=== PATIENT | male | born 1965 | race Caucasian/White ===

== ENCOUNTER 2018-06-19 22:11 | Inpatient (IN) ==
[2018-06-19] MEDS ORDERED: ATIVAN ONE (22:36)
[2018-06-19] MEDS ORDERED: ASPIRIN PR ONE (22:51)
[2018-06-19 23:15] LABS: BASO# 0.02 X1000 (0.0-0.2); BASO% 0.3 % (0.0-0.8); EOS# 0.13 X1000 (0.0-0.7); EOS% 1.6 % (0.0-10.0); HEMOGLOBIN 13.6 g/dL (14.0-18.0); IMM GRAN# 0.02 X1000 (0.0-0.04); IMM GRAN% 0.3 % (0.0-0.5); LYMPH# 2.23 X1000 (1.2-3.4); MCH 25.6 PG (27-31); MCHC 31.6 g/dL (33-37); MCV 80.8 FL (81-99); MONO# 0.62 X1000 (0.11-0.59); MONO% 7.8 % (1.7-9.3); MPV 12.7 FL (7.4-10.4); NEUT# 4.94 X1000 (1.4-6.5); PLT 271 X1000 (130-400); RBC 5.32 XMIL (4.7-6.1); RDW 14.7 % (11.5-14.5); WBC 7.96 X1000 (4.8-10.8)
[2018-06-19 23:23] LABS: INR 0.89; PROTIME 12.8 Seconds (11.0-16.0)
[2018-06-19 23:24] LABS: PTT 28.1 Seconds (22.3-41.8)
[2018-06-19 23:54] LABS: AGAP 15; ALB/GLOB RATIO 1.4; ALBUMIN 4.2 g/dL (3.5-5.0); ALKALINE PHOSPHATASE 99 U/L (32-122); BUN 10 mg/dL (8-22); CALCIUM 9.9 mg/dL (8.8-10.2); CHLORIDE 91 mmol/L (98-107); CK PROFILE 161 U/L (24-204); COSMO 288; CREATININE 1.1 mg/dL (0.7-1.2); ESTIMATED GFR > 60; GOT 89 U/L (10-34); GPT 119 U/L (10-44); POTASSIUM 4.3 mmol/L (3.5-5.1); SODIUM 132 mmol/L (136-145); TCO2 26 mmol/L (25-35); TOTAL BILIRUBIN 0.25 mg/dL (0.20-1.00); TOTAL PROTEIN 7.3 g/dL (6.3-8.3)
[2018-06-19 23:57] LABS: GLUCOSE 534 mg/dL (70-104)
[2018-06-19] MEDS ORDERED: ASPIRIN PO ONE (23:57)
[2018-06-19] MEDS ORDERED: MORPHINE IV ONE (23:58)
[2018-06-19] MEDS ORDERED: NITROGLYCERIN TOP ONE (23:58)
[2018-06-19] MEDS ORDERED: KEPPRA PO ONE (23:59)
[2018-06-20 00:22] LABS: ALLEN TEST YES; BE 3.6 mmoll (-3.0-3.0); BLOOD TYPE ARTERIAL; HCO3-(ACT) 27.6 mmoll (20.0-26.0); O2(CT) 18.7 mL/dL (15.0-23.0); O2HB 93.1 % (95.0-99.0); PO2(98.6) 69 mmHg (60-100); SAMPLE BLOOD; SAO2 95.6 % (95.0-100.0); THB 14.3 g/dL (11.5-17.4); pH(98.6) 7.37 (7.35-7.45)
[2018-06-20 00:23] LABS: MODALITY ROOM AIR
[2018-06-20 00:26] LABS: PCO2(98.6) 52 mmHg (35-45)
[2018-06-20] MEDS ORDERED: HUMULIN R IV ONE (01:12)
[2018-06-20] MEDS ORDERED: NS 1,000 ML IV SCH (01:15)
[2018-06-20 01:40] LABS: UR AMPHETAMINES QUAL NONE DETECTED (NONE DETECT); UR BARBITUATES QUAL NONE DETECTED (NONE DETECT); UR BENZODIAZEPIN QUAL NONE DETECTED (NONE DETECT); UR CANNABINOIDS QUAL NONE DETECTED (NONE DETECT); UR COCAINE QUAL NONE DETECTED (NONE DETECT); UR METHADONE QUAL NONE DETECTED (NONE DETECT); UR OPIATES QUAL NONE DETECTED (NONE DETECT); UR OXYCODONE QUAL NONE DETECTED (NONE DETECT); UR PCP QUAL NONE DETECTED (NONE DETECT)
--- NOTE | 2018-06-20 01:58 | PROVIDER DOCUMENTATION ---
This chart was entered by Radha Lindo Scribe, acting as scribe for Nuris Rowe MD. HPI-General Adult - General Chief Complaint: Chest Pain Stated Complaint: cp Time Seen by Provider: 06/19/18 23:45 Source: patient - History of Present Illness -Gen Adult Nature of Presenting Problems: Pt is 52/m presenting to ED via EMS w/ CP that he sts lasts hrs at a time and sts having SOB, nausea and some associated diaphoresis that has has been present intermittently for the past 10 days. Pt had seizure upon arrival to ED, pt has hx of seizures and currently takes kepra to control them. Pt has hx of DMII, COPD, CHF, HTN, sleep apnea, Lipids, Seizures. Location of Pain/Injury: reports: chest (L chest) Pain Radiation: reports: no radiation Quality of Pain: reports: sharp Severity: reports: moderate Onset/Duration: reports: just prior to arrival Timing: reports: still present Context/Activities at Onset: reports: none Modifying Factors: improves with: nothing Associated Symptoms: reports: diaphoresis, nausea. denies: arm pain, shortness of breath, vomiting Similar Symptoms Previously?: Yes Recently seen or treated by another doctor?: No Review of Systems - Adult - REVIEW OF SYSTEMS - ADULT Constitutional: reports: no symptoms reported. denies: chills, fever Eyes: reports: no symptoms reported Ears, Nose, Mouth & Throat: reports: no symptoms reported Cardiovascular: reports: chest pain (Lsided sharp chest pain) Respiratory: reports: no symptoms reported. denies: cough Gastrointestinal: reports: nausea. denies: abdominal pain, vomiting Genitourinary: reports: no symptoms reported Musculoskeletal: reports: no symptoms reported Integumentary: reports: no symptoms reported Neurological: reports: seizure. denies: dizziness/vertigo, headache/migraines Endocrine: reports: other (dm) Hematologic/Lymphatic: reports: no symptoms reported Past History - Adult - PAST MEDICAL HISTORY-ADULT Review of Records: reports: Old Records Reviewed, Nursing Assessment Review, Medications Reviewed, Social history reviewed & non-contributory. Cardiovascular: reports: CHF, HTN, hyperlipidemia Respiratory: reports: denies history Gastrointestinal: reports: denies history Obstetrical/Gynecological: reports: denies history Genitourinary: reports: denies history Musculoskeletal: reports: denies history Psychiatric: reports: denies history Endocrine/Immune: reports: Diabetes Diabetes Type: Type 2 - PRIOR SURGERIES/PROCEDURES Surgical/Procedure History: reports: none Physical Exam-General - CONSTITUTIONAL General Appearance: alert, mild distress - EYES Eyes: PERRL/EOMI - HEAD, EARS, NOSE, MOUTH & THROAT HENMT: normocephalic/atraumatic, moist mucous membranes - NECK Neck: non-tender, full range of motion, supple, normal inspection - RESPIRATORY Respiratory: lungs clear, normal breath sounds - CARDIOVASCULAR Cardiovascular: normal peripheral pulses, regular rate, rhythm, no edema, no murmur - GASTROINTESTINAL (ABDOMEN) Abdominal Exam: normal bowel sounds, non tender, soft - SKIN Integumentary: normal color, warm/dry - NEUROLOGIC Neurologic: grossly normal - PSYCHIATRIC Psych/Mental Status: oriented x 3, anxious Progress - PLAN OF CARE/RESULTS Progress/Plan/Lab Results: Vital Signs - 8 hr 06/19/18 22:28 Temperature 99 F Pulse Rate 105 H Respiratory Rate 16 Blood Pressure 149/92 O2 Sat by Pulse Oximetry 93 L Laboratory Results - last 24 hr 06/19/18 06/19/18 06/19/18 22:50 22:50 22:50 WBC 7.96 RBC 5.32 Hgb 13.6 L Hct 43.0 MCV 80.8 L MCH 25.6 L MCHC 31.6 L RDW Std Deviation 14.7 H Plt Count 271 MPV 12.7 H Immature Gran % (Auto) 0.3 Neut % (Auto) 62.0 Lymph % (Auto) 28.0 Williams % (Auto) 7.8 Eos % (Auto) 1.6 Baso % (Auto) 0.3 Immature Gran # (Auto) 0.02 Neut # (Auto) 4.94 Lymph # (Auto) 2.23 Williams # (Auto) 0.62 H Eos # (Auto) 0.13 Baso # (Auto) 0.02 PT INR PTT (Actin FS) Specimen Type Sample Site pH pCO2 pO2 HCO3 Base Excess Oxyhemoglobin ABG O2 Sat (Calculated) ABG O2 Saturation ABG Carboxyhemoglobin ABG Methemoglobin Migue Test A-a O2 Difference Total Hemoglobin Lactate Liter Flow Blood Gas Modality FiO2 % Sodium 132 L Potassium 4.3 Chloride 91 L Carbon Dioxide 26 Anion Gap 15 BUN 10 Creatinine 1.1 Estimated GFR/1.73 m2 > 60 BUN/Creatinine Ratio 9 Glucose 534 H* Calculated Osmolality 288 Calcium 9.9 Total Bilirubin 0.25 AST 89 H ALT 119 H Alkaline Phosphatase 99 Creatine Kinase 161 Troponin T Umx-L-Knalrbvzpmj Pept 17 Total Protein 7.3 Albumin 4.2 Globulin 3.1 Albumin/Globulin Ratio 1.4 06/19/18 06/19/18 06/19/18 22:50 22:50 23:59 WBC RBC Hgb Hct MCV MCH MCHC RDW Std Deviation Plt Count MPV Immature Gran % (Auto) Neut % (Auto) Lymph % (Auto) Williams % (Auto) Eos % (Auto) Baso % (Auto) Immature Gran # (Auto) Neut # (Auto) Lymph # (Auto) Williams # (Auto) Eos # (Auto) Baso # (Auto) PT 12.8 INR 0.89 PTT (Actin FS) 28.1 Specimen Type ARTERIAL Sample Site R RADIAL pH 7.37 pCO2 52 H* pO2 69 HCO3 27.6 H Base Excess 3.6 H Oxyhemoglobin 93.1 L ABG O2 Sat (Calculated) 18.7 ABG O2 Saturation 95.6 ABG Carboxyhemoglobin 1.60 ABG Methemoglobin 1.0 Migue Test YES A-a O2 Difference 16.0 Total Hemoglobin 14.3 Lactate 1.40 Liter Flow 0.0 Blood Gas Modality ROOM AIR FiO2 % 21.0 Sodium Potassium Chloride Carbon Dioxide Anion Gap BUN Creatinine Estimated GFR/1.73 m2 BUN/Creatinine Ratio Glucose Calculated Osmolality Calcium Total Bilirubin AST ALT Alkaline Phosphatase Creatine Kinase Troponin T < 0.010 [id number]-[id number] Pept Total Protein Albumin Globulin Albumin/Globulin Ratio Orders Category Date Time Status Cardiac Monitoring DIRECTED Care 06/19/18 22:51 Active Oxygen Therapy- ED Nursing DIRECTED Care 06/19/18 22:51 Active Saline Loc NOW Care 06/19/18 22:51 Active CHEST-PORTABLE [RAD] Stat Exams 06/19/18 22:53 Taken ABG [RESP] Routine Lab 06/19/18 23:59 Completed ACETONE SERUM [CHEM] Stat Lab 06/19/18 23:59 Uncollected BLOOD CULTURE [BLDCUL] Stat Lab 06/19/18 22:50 Ordered CBC WITH ELECTRONIC DIFF [HEME] Stat Lab 06/19/18 22:50 Completed CK PROFILE [SP CHEM] Stat Lab 06/19/18 22:50 Completed COMPREHENSIVE METABOLIC PANEL [CHEM] Stat Lab 06/19/18 22:50 Completed PRO B-NATRIURETIC PEPTIDE Stat Lab 06/19/18 22:50 Completed PROTIME WITH INR [COAG] Stat Lab 06/19/18 22:50 Completed PTT [COAG] Stat Lab 06/19/18 22:50 Completed TROPONIN T Stat Lab 06/19/18 22:50 Completed URINE DRUG SCREEN Stat Lab 06/19/18 23:57 Uncollected Aspirin Med 06/19/18 22:51 Discontinued 300 mg NH NOW ONE Aspirin Med 06/19/18 23:57 Discontinued 325 mg PO NOW ONE Levetiracetam [Keppra] Med 06/19/18 23:59 Once 1,500 mg PO NOW ONE Lorazepam [Ativan] Med 06/19/18 22:36 Discontinued 2 mg .ROUTE .STK-MED ONE Morphine Med 06/19/18 23:58 Discontinued 4 mg IV NOW ONE Nitroglycerin Med 06/19/18 23:58 Discontinued 0.5 inch TOP NOW ONE CP/SOB/Palp >45 yrs of Age Stat Oth 06/19/18 22:51 Ordered EKG [EKG] Stat Ther 06/19/18 22:21 Ordered EKG [EKG] Stat Ther 06/19/18 22:51 Ordered Heart score 5 need inpatient for further management Result Diagrams: 06/19/18 22:50 06/19/18 22:50 - REASSESSMENT Reassessment #1 Time Reassessed: 01:10 Status: unchanged (medication not given yet, nurse informed to give medication now.) Reassessment #2 Time Reassessed: 01:56 Status: unchanged (Nurse is putting IV now to start medication, informed to give aspirin now.) - CONSULTS/PCP/HOSPITALIST Notification #1 *Consult/PCP/Hospitalist*: Dr. Farias Time Discussed: 01:49 Consult Disposition: Admit (Hx, PE and patient care discussed with Dr. Farias, accepted. Dr. Farias request head CT due to seizure.) Departure - Departure Date of Disposition Decision: 06/20/18 Time of Disposition Decision: 01:49 DIAGNOSIS: Seizure, Hyperglycemia Chest pain Qualifiers: Chest pain type: unspecified Qualified Code(s): R07.9 - Chest pain, unspecified Disposition: ADMITTED INPATIENT 09 Certified Medical Emergency: Emergent Condition: Serious Referrals and Follow-Ups: RUFINO KRAMER [Primary Care Provider] - - Critical Care Note This patient required my direct & personal management of CC.: No Attestation - Physician/ DYLAN Attestation Patient care was provided by Advanced Practice Provider:: No The physician spent face to face time with patient:: Yes Advanced Practice Provider documentation review:: Supervising physician onsite and consulted in the evaluation and care of this patient. The physician did have a face to face encounter with the patient. This chart was documented by the indicated scribe, (Radha Lindo, Seb) and accurately reflects the services I performed and decisions made by me, Nuris Santoyo MD, as attested by the provider's signature.
--- NOTE | 2018-06-20 06:10 | Diag Imaging Result Doc PS360 ---
EXAM: CHEST-PORTABLE HISTORY: CP TECHNIQUE: Chest single view COMPARISON: None. FINDINGS: The lungs are well expanded. The heart is not enlarged. The vessels are not distended. There are no infiltrates. No effusion identified. IMPRESSION: Negative exam. Electronically signed by Kiko Hewitt 06/20/2018 6:08 AM
[2018-06-20 06:56] LABS: HEMOGLOBIN A1C 13.3 % (4.8-6.0)
[2018-06-20] MEDS ORDERED: HUMULIN R SUBQ SCH (07:00)
--- NOTE | 2018-06-20 07:11 | EKG Report ---
Test Performed on : 06/19/2018 10:19:02 PM Test Reason : CP Blood Pressure : / mmHG Vent. Rate : 107 BPM Atrial Rate : 107 BPM P-R Int : 188 ms QRS Dur : 090 ms QT Int : 332 ms P-R-T Axes : 070 -03 044 degrees QTc Int : 443 ms Sinus tachycardia. Possible Left atrial enlargement Borderline ECG No previous ECGs available Unconfirmed Result
--- NOTE | 2018-06-20 07:36 | HISTORY AND PHYSICAL ---
PRIMARY CARE PROVIDER: Dr. Escobedo in [facility] [employer] ASSEMBLER: Dr. Sameer Palma. DATE AND TIME: 06/20/2018 at 0300. CHIEF COMPLAINT: Chest pain. HISTORY OF PRESENT ILLNESS: Mr. Wynn is a 52-year-old, male with a past medical history of angioplasty without stent placement a few years ago. The patient reports since that time he has been taking a daily aspirin. Approximately 4 weeks ago, he was instructed by his surgeon who performed his hernia repair to stop taking his aspirin due to some reported bleeding complications. The patient states that over the past 3 months that he has had approximately 5 episodes of chest pain. He reports this chest pain does come on with exertion though once he stops and sits down and rests the chest pain does not always subside. He states that it usually does subside with the administration of nitroglycerin. The patient states that yesterday he was walking when he began to have chest pain that was in the center of his chest and was nonradiating. He stated it felt like somebody was stabbing him in the chest. He did have associated symptoms of nausea. The patient also reported that just prior to his arrival to the ER he did have a seizure at home. He also had a witnessed seizure by EMS in the ER staff after his arrival to the ER as well. The patient denied any recent changes to any of his medications or being out of his medicines or missing any doses of his medicines recently. The only change that he mentioned was the aspirin as above. He denies any dizziness, shortness of breath, near- syncope, syncope, abdominal pain or vomiting. The patient does have a history of seizures. He stated that his last seizure prior to the one that he had today have been a few months ago. He does take Keppra daily though and does not know the dose at this time though he thinks it is 500 mg twice a day. The patient also reports that he does use alcohol daily. He states he drinks fifth of liquor over a couple of days, so approximately just less than a pint of liquor a day. He has had reported withdrawal symptoms in the past when going for periods without drinking. Upon evaluation in the ER, the patient was noted to be hypoglycemic with a serum glucose of 534. He was slightly hypercapnic as well with CO2 of 52. He does have a history of having COPD and sleep apnea though this is the patient's first visit at our hospital, and we do not have a baseline CO2 level to compare this to. Head CT showed no acute intracranial abnormality. Chest x- ray showed no acute disease. The initial troponin and CK were negative. EKG showed a sinus tachycardia with possible left atrial enlargement at a rate of 107 with a QTc of 443. The patient states that his chest pain has improved since receiving morphine and nitroglycerin though he still is having chest pain at this time. During my examination, the patient was very drowsy. He did repeatedly keep falling asleep and would have to be awoken with verbal and light tactile stimulation. Once awoken, he is alert and oriented to person, place, time, and situation. Though, unfortunately, he is a very poor historian. At this time, he will be admitted for further treatment and evaluation of his chest pain. REVIEW OF SYSTEMS: A 14 point review of systems was conducted with the patient. All were negative except for pertinent positives mentioned above in HPI. PAST MEDICAL HISTORY: 1. Coronary artery disease, status post angioplasty. 2. Hypertension. 3. Hyperlipidemia. 4. Congestive heart failure. 5. COPD. 6. Diabetes mellitus type 2. 7. Seizure disorder. 8. Essential tremor. 9. Restless legs syndrome. 10. Glaucoma. 11. Major depressive disorder. 12. Alcohol abuse. 13. Gastroesophageal reflux disease. PAST SURGICAL HISTORY: 1. Angioplasty. 2. Hernia repair. 3. Tonsillectomy. 4. Adenoidectomy. 5. The patient does have surgery of his left lower leg. SOCIAL HISTORY: The patient is a former smoker. He quit smoking five years ago though prior to this he had smoked since he was age 11 at 2 packs per day. The patient reports that he does drink daily approximately 500 mL of liquor a day. He does report that he has had withdrawal symptoms in the past when going for periods of time without drinking. He denies any illicit drug use. He is disabled. The patient does have a history of major depressive disorder, though has never received inpatient psychiatric treatment. He denies any previous history of self-harm or attempted suicide. He denies any suicidal or homicidal thoughts at the present time. FAMILY HISTORY: The patient reports that he is adopted and does not know any of his family medical history. ALLERGIES: He reports allergies to morphine, penicillin, ibuprofen and Librium though after speaking with the patient his morphine allergy is more of a personal preference. The patient states that previously he felt as though he was becoming addicted to morphine when he was receiving it in the past, and did ask not to be given this medicine anymore. HOME MEDICATIONS: We are still awaiting some of his home medications to be verified though we do have some that have been verified and they are as followed. 1. Aripiprazole 10 mg p.o. daily. 2. Atorvastatin 10 mg p.o. daily. 3. Rexulti 10 mg p.o. at bedtime. 4. Bumetanide 1 mg p.o. p.r.n. as directed. 5. Buspirone HCL 30 mg p.o. b.i.d. 6. Clonidine 0.1 mg p.o. p.r.n. as directed. 7. Flexeril 10 mg p.o. at bedtime. 8. Cymbalta 90 mg p.o. daily. 9. Tricor 145 mg p.o. at bedtime. 10. NovoLog subcu as directed though this medication has not been confirmed with the patient. 11. Tresiba, previously this looked to be 80 units subcu though this dose has not been verified with the patient. 12. Cozaar 50 mg p.o. daily. 13. Metoprolol 50 mg p.o. b.i.d. 14. Singulair 10 mg p.o. daily. 15. Omeprazole 20 mg p.o. daily. 16. Primidone 150 mg p.o. b.i.d. 17. Requip 1 mg p.o. 4 times a day. 18. Janumet 50 -1000 mg tablet 1 tablet p.o. b.i.d. 19. Desyrel 150 mg p.o. at bedtime p.r.n. as directed. DIAGNOSTIC DATA/LABORATORY RESULTS: White blood cell count is 7960. Hemoglobin 13.6, hematocrit 43, and platelet count is 271,000. PT 12.8, INR 0.89, PTT is 28.1. Sodium 132, potassium 4.3, chloride 91, serum bicarb 26, BUN 10, creatinine 1.1, glucose 534, calcium 9.9, magnesium 1.9. Total bilirubin is 0.25, AST 89, ALT 119, CK 161. Troponin less than 0.01. ProBNP is 17. Serum acetone level is negative. Serum alcohol level is 0. Urine drug screen was negative. Arterial blood gases were obtained on room air, pH is 7.37, pCO2 was 52, PO2 69, HC03 is 27.6, with a base excess of 3.6. Oxyhemoglobin 93.1 and O2 saturation of 95.6. EKG showed sinus tachycardia with possible left atrial enlargement at a rate of 107 with a QTc of 443. Portable chest x-ray showed to be a negative exam as per Radiology. CT of the head without contrast showed no acute intracranial abnormality. Age-appropriate exam is as per Radiology. PHYSICAL EXAMINATION: VITAL SIGNS: Temperature 99 degrees, heart rate 66, respirations 17, blood pressure is 158/88, oxygen saturation is 96% on nasal cannula at 2 L. During my examination, the patient's oxygen saturation was dipping into the 89% on room air. This may be secondary to medications that he was given which included morphine in the ER. The patient was not in any respiratory distress. GENERAL: Mr. Wynn is a 52-year-old, male who was resting on the ER stretcher. He was drowsy upon my examination, and did have to be repeatedly awoken with verbal and light tactile stimulation. Once awoken, he was able to answer questions appropriately though I did have to repeat the questions more than once at times. He is alert and oriented to person, place, time, and situation though unfortunately is somewhat of a poor historian. HEENT: Head is atraumatic, normocephalic. Pupils are equal, round, and reactive to light and were 3 mm bilaterally and brisk. Oral mucosa was moist. Oropharynx was clear. NECK: Supple. Trachea midline. No JVD noted. CARDIOVASCULAR: The patient has S1-S2 present though heart sounds were difficult to auscultate though this could be secondary to body habitus. There are no overt murmurs, gallops or rubs appreciated. He does have a regular rate and rhythm. PULMONARY: The patient has symmetrical chest expansion bilaterally. Lung sounds are clear to auscultation in bilateral full alvarado. ABDOMEN: Soft. He does not appear to be distended. The patient does have a protuberant abdomen noted. He was nontender upon palpation. Bowel sounds were present and all 4 quadrants were slightly hypoactive. EXTREMITIES: No cyanosis, clubbing or edema noted. Pulse, motor, and sensory is intact in all extremities. Radial pulses and pedal pulses were 2+ bilaterally. INTEGUMENTARY: The patient's skin is pink, warm, and dry. NEUROLOGICAL: The patient is alert and oriented to person, place, time, and situation. He is able to move all extremities though as previously mentioned, the patient was drowsy during my examination. I did have to repeatedly wake him up to answer questions, and did have to repeat the questions more than once. He was easily arousable with verbal and light tactile stimulation. Other than this, there does not appear to be any other focal neurological deficits noted. ASSESSMENT AND PLAN: 1. Chest pain. For further evaluation of this, we have placed a series of cardiac enzymes. We will do repeat EKG in the morning as well as an echocardiogram. We have placed a consult with Cardiology, and we will await their evaluation and further recommendations for management. We will continue with daily aspirin therapy and we have continued the patient's antihypertensive and hyperlipidemic medications. He will be placed on CIC with telemetry for close monitoring. We will continue to follow. 2. History of coronary artery disease, status post angioplasty. We will continue treatment as mentioned above for #1. 3. Hypertension. We will continue his regularly prescribed medicines. 4. Hyperlipidemia. We will continue his regularly prescribed medicines. 5. Diabetes mellitus type 2. The patient was hyperglycemic upon arrival though this has improved since being given insulin. We will continue with a sliding scale Regular insulin per moderate dose protocol. We will do pattern fingerstick blood sugars. We have ordered a hemoglobin A1c and are awaiting this result at this time. We will try to get the patient's other diabetic medications verified so these can be readdressed. 6. Seizure disorder. We have placed the patient on seizure precautions as well as aspiration precautions. He does take Keppra though we are still trying to verify his dose. He did receive a dose of 1500 mg in the ER. We will continue with [address] His CT of the head was negative. As previously mentioned, we will continue to follow. 7. Alcohol abuse. The patient reports that he does drink approximately a pint of liquor a day. We will closely monitor him for any signs and symptoms of alcohol withdrawal. He does have an allergy to Librium so we are going to place him with baclofen 20 mg 3 times a day. We will continue to closely monitor him. 8. Major depressive disorder. We continued the patient's regularly prescribed medicines. 9. COPD. We are awaiting some of his respiratory medications to be verified though until this is completed, we will place him with p.r.n. DuoNeb treatments q 4 to 6 hours as needed. 10. Deep vein thrombosis prophylaxis provided with SCD's. The patient will placed on CIC with telemetry. He will have vital signs q.4 hours. We will do strict intake and output. He will be NPO until evaluated by cardiology. Further orders and recommendations pending hospital course, diagnostic studies, and physician evaluation. Dictated by JENNYFER Yanes for Pete Suero MD Addendum: Patient seen and examined by myself. Agree with JENNYFER note. It reflects my assessment and plan. Patient is being admitted for chest pain. Patient has known coronary artery disease. Will trend troponins, order an echocardiogram and consult cardiology. Will monitor patient closely. cc: Pete Suero MD MTDD
[2018-06-20] MEDS: HUMULIN R SUBQ SCH ×4 (07:38→20:51)
[2018-06-20] MEDS: LIORESAL PO SCH ×3 (07:41→23:24)
[2018-06-20] MEDS: PRILOSEC PO SCH (07:41)
--- NOTE | 2018-06-20 07:58 | Diag Imaging Result Doc PS360 ---
EXAM: CT HEAD W/O CONTRAST 06/20/2018 HISTORY: seizure TECHNIQUE: This exam was performed using automated exposure control, adjustment of mA or kV according to patient size, and/or use of iterative reconstruction technique. COMMENT: There is no evidence of mass effect, bleed, or abnormal extra-axial fluid collection. The paranasal sinuses are clear. The calvarium is intact. IMPRESSION: No evidence of acute intracranial disease. Electronically signed by Randy Higginbotham 06/20/2018 7:55 AM
--- NOTE | 2018-06-20 08:16 | EKG Report ---
Test Performed on : 06/20/2018 07:33:42 AM Test Reason : chest pain Blood Pressure : / mmHG Vent. Rate : 064 BPM Atrial Rate : 064 BPM P-R Int : 192 ms QRS Dur : 092 ms QT Int : 414 ms P-R-T Axes : 062 -07 052 degrees QTc Int : 427 ms Normal sinus rhythm. Normal ECG When compared with ECG of 19-JUN-2018 22:19, (Unconfirmed) Vent. rate has decreased BY 43 BPM Unconfirmed Result
[2018-06-20] MEDS: REQUIP PO SCH ×4 (08:59→20:49)
[2018-06-20] MEDS: LIPITOR PO SCH (08:59)
[2018-06-20] MEDS: ABILIFY PO SCH (08:59)
[2018-06-20] MEDS: ZETIA PO SCH (09:00)
[2018-06-20] MEDS: ASPIRIN EC PO SCH (09:00)
[2018-06-20] MEDS: MYSOLINE PO SCH ×2 (09:00→21:33)
[2018-06-20] MEDS: LOPRESSOR PO SCH ×2 (09:01→20:50)
[2018-06-20] MEDS: CYMBALTA PO SCH (09:01)
[2018-06-20] MEDS: SINGULAIR PO SCH (09:01)
[2018-06-20] MEDS: BUSPAR PO SCH ×2 (09:02→20:50)
[2018-06-20] MEDS: COZAAR PO SCH (09:03)
[2018-06-20 09:24] LABS: CK INDEX 1.8 (0.0-2.5); CK-MB 4.48 ng/mL (0.0-5.0)
[2018-06-20] MEDS: DUONEB (A & A) INH PRN ×2 (09:27→21:55)
[2018-06-20] MEDS ORDERED: LEXISCAN ONE (15:15)
[2018-06-20 15:19] LABS: CK INDEX 2.2 (0.0-2.5); CK-MB 4.88 ng/mL (0.0-5.0)
[2018-06-20] MEDS ORDERED: BASAGLAR SUBQ ONE (17:16)
[2018-06-20] MEDS: HUMALOG SUBQ SCH (18:00)
--- NOTE | 2018-06-20 18:02 | PROGRESS NOTE ---
DATE: 06/20/2018 SUBJECTIVE: Today Mr. Wynn was seen in the ICU. He refers to be doing fairly okay. He has not had any more seizures and he said his chest pain has improved. OBJECTIVE: Vital Signs: Blood pressure is 106/79, pulse is 66, respiration is 15, temperature is 98.1. General: Mr. Wynn is a 52-year-old male. He is in bed, is not in any cardiopulmonary distress. HEENT: Mucosa is pink and moist. Anicteric. Acyanotic. Neck: Supple. Chest: He is slightly lethargic, but easily arousable. Cardiovascular: Regular rate and rhythm. No murmurs, no rubs, no gallops. Respiratory: There is good air entry bilateral. There are no crepitations, no rhonchi. Abdomen: Soft, nontender. Bowel sounds present. Extremities: No pedal edema. Distal pulses present. Central Nervous System: Patient is drowsy, but easily arousable and follows commands. LABORATORY DATA: From yesterday has been reviewed. Remarkably, glucose was 534, with A1c of 13.3. A chest x-ray showed no pathology. A CT scan of the head was unremarkable. ASSESSMENT: 1. Atypical chest pain on presentation. The patient has undergone stress test and I understand is negative. We are awaiting for the official report. 2. History of coronary artery disease status post angioplasty. 3. Diabetes type 2, uncontrolled with an A1c of 13.3. According to Mr. Wynn, he takes over about 8 units of Tresiba at night. Unsure if he is consistent with the insulin regimen since his A1c is remarkably high. For now, we are going to continue with some glargine, cover his meals and the rest was sliding scale. 4. Alcohol abuse. The patient has been counseled. We are going to be watching for withdrawal symptoms. 5. History of major depressive disorder. 6. Hypertension, dyslipidemia, stable. 7. Elevated liver enzymes. We will get liver hepatitis serology panel and an ultrasound of the liver in the morning. cc: Aubrey Alvarez MD
--- NOTE | 2018-06-20 18:06 | CARDIOLOGY CONSULTATION ---
DATE: 06/20/2018 CHIEF COMPLAINT: On presentation to ER was chest pain. HISTORY OF PRESENT ILLNESS: Mr. Wynn is a 52-year-old, white male with no previous cardiac history. Per the patient. He does apparently see a plastics plater down in [place] and has had a stress test in the past but he is not aware of a previous heart catheterization being performed. He has not had a stress test in many years per him. The patient is a very difficult historian as he falls asleep on multiple occasions during the course of the evaluation. He reports that at rest yesterday evening, he had the onset of a stabbing type chest pain in a point location in the left chest wall area. This was not exertional in nature. There was no exacerbation of the symptom with any sort of activities. It persisted until it apparently resolved at some point this morning. It lasted for many hours. He had no other associated symptoms. The patient apparently suffered a seizure at some point during this ER evaluation. He has a history of seizures and he is somewhat somnolent possibly secondary to benzodiazepines being administered. PAST MEDICAL HISTORY: Somewhat difficult and limited to fine secondary to the patient not being a very good historian. 1. Again, he denied any sort of previous coronary artery disease or heart catheterizations. He has listed that he has had a previous stent. I do not have any clinical information to support this. We do not have records of the [facility] to support this, nor are there any records available at [facility] to support this. 2. Hyperlipidemia. 3. Hypertension. 4. Diabetes. 5. Seizure disorder. This is obtained via chart review. SOCIAL HISTORY: The patient was apparently recently living at some sort of hotel. He quit smoking around 5 years ago. He drinks liquor on a daily basis. Has previously had withdrawal symptoms. He denies any illicit drug use. FAMILY HISTORY: Apparently was adopted and he does not know any of his pertinent family history. REVIEW OF SYSTEMS: Ten system review of systems is negative except for those things mentioned in HPI. PHYSICAL EXAMINATION: Vital Signs: He is afebrile. His heart rate is 65. His blood pressure is 106/79. On presentation, it was 149/92. General: He is in no acute distress. HEENT: Oropharynx is moist. He has poor dentition. Eye examination is pink conjunctivae. White sclerae. Neck: Examination shows no obvious thyromegaly or thyroid tenderness. Cardiovascular: He sounds to be in a regular rate and rhythm. He has no obvious murmurs. He has no pain with palpation of the chest wall. No obvious external signs of trauma. He has no lower extremity edema. Chest: Exam sounds clear bilaterally. He has no increased work of breathing. Abdomen: Soft, nontender, nondistended. He has no obvious organomegaly. Skin: Warm and dry throughout without any rashes. Neurological: He is moving all extremities well. He has no obvious lateralizing deficits. Psychiatric: He is somewhat somnolent. He does wake to physical and verbal stimuli, but at times he has to be re-woken during the course of the evaluation. PERTINENT DATA: His chest x-ray is unremarkable for any acute findings. He had a head CT that showed no evidence of acute intracranial disease. His EKG at 7:33 this morning shows sinus rhythm, with no acute ischemic changes. His EKG yesterday at 2219 shows mild sinus tachycardia at 107 beats per minute with no acute signs of ischemia, injury pattern or previous infarct. DATA: White count 7.9, hematocrit 43, platelet count is 271. INR 0.89. His sodium is 132, potassium 4.3, BUN 10, creatinine 1.1. His glucose was 534 his A1c is 13. His cardiac enzymes are negative times multiple sets. His alcohol level was negative. His UDS was negative. ASSESSMENT: Mr. Wynn is a 52-year-old male with diabetes, hypertension, previous tobacco use. Presenting with atypical chest pain. PLAN: We will proceed with myocardial perfusion imaging. If this is unremarkable, then he can likely be discharged from a cardiovascular standpoint. Myocardial perfusion imaging will be performed today. cc: John Lui MD
[2018-06-20] MEDS ORDERED: INSULIN PEN NEEDLES ONE (18:53)
--- NOTE | 2018-06-20 19:40 | Diag Imaging Result Document ---
PROCEDURE NAME: MYOCARDIAL PERF SCAN, STR/REST - 06/20/2018 SUMMARY: The patient administered 15.5 mCi of technetium-99m labeled sestamibi, after which resting cardiac images were obtained. The patient was subsequently administered Lexiscan 0.4 mg intravenously, after which the heart rate went from 63 beats per minute to 71 beats per minute. The blood pressure went from 137/73 to 105/69. With Lexiscan, the patient denied chest discomfort. Following the administration of Lexiscan, the patient was administered 45.3 mCi of technetium-99m labeled sestamibi, after which gated stress cardiac images were obtained. Baseline ECG demonstrated sinus rhythm. With Lexiscan, there were no diagnostic ST-segment changes. SPECT images were reconstructed in the short, horizontal long, and vertical long axis. Review of these images demonstrated mildly to moderately diminished activity in the basal and mid inferior wall on stress images which appears similar on resting images. No significant reversibility is evident. Gated images demonstrate a calculated left ventricular ejection fraction of 65% with symmetrical wall motion/thickening. CONCLUSIONS: 1. Adequate response to Lexiscan. 2. Clinically negative for chest pain. 3. Electrocardiographically negative for Lexiscan-induced myocardial ischemia. 4. Lexiscan sestamibi images demonstrate fixed mildly to moderately diminished activity in the basal and mid inferior wall, with corresponding preserved regional wall motion most consistent with diaphragm attenuation artifact. Nontransmural infarction in this territory cannot entirely be excluded. There is no convincing scintigraphic evidence of inducible myocardial ischemia. Normal left ventricular systolic function and wall motion demonstrated. cc: MD Opal Tinajero PA
[2018-06-20] MEDS: KEPPRA PO SCH (20:50)
[2018-06-20] MEDS ORDERED: TRICOR PO SCH (21:00)
[2018-06-20] MEDS ORDERED: FLEXERIL PO SCH (21:00)
[2018-06-20] MEDS: NON-FORMULARY MED (Brexpiprazole [Rexulti] 0 MG) PO SCH (21:32)
--- NOTE | 2018-06-20 22:19 | ECHO REPORT ---
ORDER DATE: 06/20/2018 MEASUREMENTS: Septal thickness 1.0. Left ventricular internal diameter diastole 4.6. Positive wall thickness 1.0. Left ventricular internal diameter in systole 3.2. Aortic root 2.8. Left atrium 3.8 summary. SUMMARY: 1. Technically difficult study due to limited acoustic window quality. Intravenous echo contrast agent was utilized to enhance endocardial definition. 2. Aortic valve is trileaflet and opens normally on 2-dimensional images. Mitral and tricuspid valves are without evidence of structural abnormality, while pulmonic valve is not well demonstrated. There is trace mitral regurgitation and trace tricuspid regurgitation. The aortic root is normal size. 3. Normal left ventricular dimensions demonstrated. Estimated left ejection fraction appears to be at least 65%. No regional wall motion abnormalities evident. Left atrium, right atrium, right ventricle are normal size with grossly preserved right ventricular systolic function. 4. No pericardial effusion. 5. Appearance of inferior vena cava suggests normal central venous pressure. cc: Cam Sosa MD
[2018-06-20 23:26] LABS: CK-MB 4.44 ng/mL (0.0-5.0)
[2018-06-21 06:23] LABS: BASO# 0.02 X1000 (0.0-0.2); BASO% 0.3 % (0.0-0.8); EOS# 0.15 X1000 (0.0-0.7); EOS% 2.3 % (0.0-10.0); HEMATOCRIT 40.9 % (42.0-52.0); HEMOGLOBIN 12.8 g/dL (14.0-18.0); IMM GRAN# 0.02 X1000 (0.0-0.04); IMM GRAN% 0.3 % (0.0-0.5); LYMPH# 1.72 X1000 (1.2-3.4); LYMPH% 26.3 % (20.5-51.1); MCHC 31.3 g/dL (33-37); MCV 83.1 FL (81-99); MONO# 0.53 X1000 (0.11-0.59); MONO% 8.1 % (1.7-9.3); MPV 12.5 FL (7.4-10.4); NEUT# 4.11 X1000 (1.4-6.5); NEUT% 62.7 % (42.2-75.2); PLT 238 X1000 (130-400); RBC 4.92 XMIL (4.7-6.1); RDW 14.9 % (11.5-14.5); WBC 6.55 X1000 (4.8-10.8)
[2018-06-21] MEDS: PRILOSEC PO SCH (06:31)
[2018-06-21] MEDS: LIORESAL PO SCH ×3 (06:32→16:17)
[2018-06-21] MEDS: HUMULIN R SUBQ SCH ×4 (06:32→21:02)
[2018-06-21 06:52] LABS: AGAP 12; ALB/GLOB RATIO 1.6; ALBUMIN 3.6 g/dL (3.5-5.0); ALKALINE PHOSPHATASE 83 U/L (32-122); BUN 15 mg/dL (8-22); CALCIUM 9.3 mg/dL (8.8-10.2); CHLORIDE 97 mmol/L (98-107); COSMO 290; CREATININE 0.9 mg/dL (0.7-1.2); ESTIMATED GFR > 60; GLUCOSE 303 mg/dL (70-104); GOT 96 U/L (10-34); GPT 103 U/L (10-44); MAGNESIUM 1.7 mg/dL (1.5-2.7); POTASSIUM 4.8 mmol/L (3.5-5.1); SODIUM 139 mmol/L (136-145); TCO2 30 mmol/L (25-35); TOTAL BILIRUBIN 0.39 mg/dL (0.20-1.00); TOTAL PROTEIN 5.8 g/dL (6.3-8.3)
[2018-06-21] MEDS: HUMALOG SUBQ SCH ×3 (08:03→16:17)
[2018-06-21] MEDS: ASPIRIN EC PO SCH (08:04)
[2018-06-21] MEDS: REQUIP PO SCH ×4 (08:04→21:04)
[2018-06-21] MEDS: BASAGLAR SUBQ SCH (08:04)
[2018-06-21] MEDS: ABILIFY PO SCH (08:04)
[2018-06-21] MEDS: COZAAR PO SCH (08:04)
[2018-06-21] MEDS: CYMBALTA PO SCH (08:05)
[2018-06-21] MEDS: BUSPAR PO SCH ×2 (08:05→21:02)
[2018-06-21] MEDS: ZETIA PO SCH (08:05)
[2018-06-21] MEDS: SINGULAIR PO SCH (08:05)
[2018-06-21] MEDS: KEPPRA PO SCH ×2 (08:05→21:02)
[2018-06-21] MEDS: LOPRESSOR PO SCH ×2 (08:05→21:03)
[2018-06-21] MEDS: LIPITOR PO SCH (08:06)
--- NOTE | 2018-06-21 09:48 | PROGRESS NOTE ---
DATE: 06/21/2018 SUBJECTIVE: This morning Mr. Wynn refers to be doing fairly okay. Denies any complaint, except for some twitching every now and then, but he has not had any seizures since in hospital. OBJECTIVE: Vitals: Blood pressure is 116/54, pulse is 53, respiration is 15, temperature is 97.9 degrees. General: Mr. Wynn is a 52-year-old, morbidly obese male. He is in bed. He is not in any cardiopulmonary distress. HEENT: Mucosa is pink and moist. Anicteric. Acyanotic. Neck: Supple. Chest: Clear to auscultation. Cardiovascular: Regular rate and rhythm. No murmurs, no rubs, no gallops. PRINTING SPECIALIST: Patient is awake, alert, oriented. Slightly drowsy, but much alert today than yesterday. LAB WORK: WBC 6.55, hemoglobin is 12.8, platelet count of 238. Chemistry is also reviewed; completely normal, except for glucose of 303. AST is up, ALT is also elevated. CURRENT MEDICATIONS: Have all been reviewed. ASSESSMENT: 1. Atypical chest pain on presentation. Stress test is negative. 2. History of coronary artery disease status post stents in the past. The patient is currently asymptomatic. 3. Diabetes mellitus type 2 with a presenting A1c of 13.3. We will continue titrating his insulin for better glycemic control. 4. Alcohol abuse. Patient has been counseled. No signs of any withdrawal. 5. History of major depressive disorder. Patient is on home medication; this has been started. 6. Hypertension, dyslipidemia, stable. 7. Elevated liver enzymes. Etiology is unclear. Patient could be multifactorial, including drug- induced, alcohol and steatohepatitis. Ultrasound of the abdomen has been done. We will follow up on that as well. Viral hepatitis is also ordered. PLAN: So, in general Mr. Wynn is doing fairly okay. He seems to have tolerated his breakfast well. We are going to transfer him from the ICU to regular medical floor, observe him about 4 hours. If he continues to be stable and able to move around, we are going to discharge him. He has not had any seizures during the hospital course, and his chest pain has resolved. cc: Aubrey Alvarez MD
[2018-06-21] MEDS: MYSOLINE PO SCH ×2 (10:44→21:03)
--- NOTE | 2018-06-21 11:03 | Diag Imaging Result Doc PS360 ---
EXAM: US ABDOMEN-COMPLETE - 06/21/2018 HISTORY: transaminitis TECHNIQUE: Ultrasound abdomen COMPARISON: None. FINDINGS: The liver is somewhat prominent in size and appears diffusely echodense suggesting fatty infiltration. There is no focal liver lesion identified. Doppler image shows hepatopedal flow in the portal vein. The spleen is unremarkable. There is no ascites seen. The gallbladder is visualized and demonstrates no abnormalities. There is no evidence of gallstones. The technologist reports negative sonographic Alvarenga's sign. The common bile duct is normal caliber at 5 mm. The pancreas is largely obscured by bowel gas artifacts. The right kidney is unremarkable. There is mild left hydronephrosis. There is no discrete renal stone or renal mass identified. The aorta and IVC are largely obscured by bowel gas artifacts. IMPRESSION: Hepatomegaly, with fatty infiltration of the liver. No evidence of focal liver lesion. No visible gallbladder abnormality. No evidence of gallstones. Normal caliber common bile duct at 5 mm. Mild left hydronephrosis. The pancreas, abdominal aorta, and IVC are largely by bowel gas artifacts. Electronically signed by Jeff Quintero 06/21/2018 11:00 AM
[2018-06-21] MEDS: ATIVAN IV PRN ×2 (13:33→23:34)
[2018-06-21] MEDS: NON-FORMULARY MED (Brexpiprazole [Rexulti] 0 MG) PO SCH (21:01)
[2018-06-21] MEDS ORDERED: ATIVAN IV ONE (22:07)
[2018-06-21] MEDS: ZOFRAN IV PRN (22:25)
[2018-06-21 22:54] LABS: URINE SOURCE CATH
[2018-06-21 22:59] LABS: BILIRUBIN URINE NEGATIVE (NEGATIVE); BLOOD URINE SMALL (NEGATIVE); COLOR YELLOW; GLUCOSE URINE 1000 mg/dL (NEGATIVE); KETONE URINE NEGATIVE (NEGATIVE); LEUKOCYTES URINE MODERATE (NEGATIVE); NITRITE URINE NEGATIVE (NEGATIVE); PH URINE 5.5; PROTEIN URINE TRACE mg/dL (NEGATIVE); SP GRAVITY URINE 1.023; TURBIDITY URINE CLEAR (CLEAR); UROBILINOGEN URINE NORMAL (NORMAL)
[2018-06-21 23:01] LABS: UR EPITHELIAL CELLS >10 /HPF (<10); URINE BACTERIA NEGATIVE /HPF; URINE RBC 20-40 /HPF (<10); URINE WBC 20-40 /HPF (<10)
[2018-06-22] MEDS ORDERED: PHENOBARBITAL IV ONE (00:03)
[2018-06-22] MEDS ORDERED: DILANTIN IV ONE ×2 (00:11→01:00)
[2018-06-22] MEDS: ATIVAN 20 MG in NS 190 ML IV SCH ×2 (00:50→10:17)
[2018-06-22] MEDS ORDERED: NS IV ONE (01:00)
[2018-06-22] MEDS: LIORESAL PO SCH ×3 (01:05→16:32)
[2018-06-22] MEDS ORDERED: GEODON IM ONE (01:35)
[2018-06-22] MEDS ORDERED: STERILE WATER INJ. INJ ONE (01:35)
[2018-06-22] MEDS: ATIVAN IV PRN ×7 (03:15→21:09)
[2018-06-22] MEDS: PRILOSEC PO SCH (06:11)
[2018-06-22] MEDS: HUMULIN R SUBQ SCH ×4 (06:39→22:03)
[2018-06-22] MEDS: HUMALOG SUBQ SCH ×3 (07:33→16:32)
[2018-06-22] MEDS: ABILIFY PO SCH (08:06)
[2018-06-22] MEDS: ASPIRIN EC PO SCH (08:06)
[2018-06-22] MEDS: DILANTIN IV SCH ×3 (08:06→18:18)
[2018-06-22] MEDS: BUSPAR PO SCH ×2 (08:06→20:59)
[2018-06-22] MEDS: BASAGLAR SUBQ SCH (08:07)
[2018-06-22] MEDS: COZAAR PO SCH (08:07)
[2018-06-22] MEDS: CYMBALTA PO SCH (08:07)
[2018-06-22] MEDS: LIPITOR PO SCH (08:07)
[2018-06-22] MEDS: KEPPRA PO SCH ×2 (08:07→21:00)
[2018-06-22] MEDS: SINGULAIR PO SCH (08:08)
[2018-06-22] MEDS: REQUIP PO SCH ×4 (08:08→21:30)
[2018-06-22] MEDS: LOPRESSOR PO SCH ×2 (08:08→21:00)
[2018-06-22] MEDS: MYSOLINE PO SCH ×2 (08:08→21:01)
[2018-06-22] MEDS: ZETIA PO SCH (08:08)
[2018-06-22 09:44] LABS: HEPATITIS PROFILE ACUTE SEE COMMENTS
[2018-06-22 11:49] LABS: BASO# 0.02 X1000 (0.0-0.2); BASO% 0.2 % (0.0-0.8); EOS# 0.09 X1000 (0.0-0.7); EOS% 0.7 % (0.0-10.0); HEMATOCRIT 42.9 % (42.0-52.0); HEMOGLOBIN 13.4 g/dL (14.0-18.0); IMM GRAN# 0.03 X1000 (0.0-0.04); IMM GRAN% 0.2 % (0.0-0.5); LYMPH# 2.84 X1000 (1.2-3.4); LYMPH% 22.6 % (20.5-51.1); MCH 25.6 PG (27-31); MCHC 31.2 g/dL (33-37); MCV 81.9 FL (81-99); MONO# 0.98 X1000 (0.11-0.59); MONO% 7.8 % (1.7-9.3); MPV 12.2 FL (7.4-10.4); NEUT% 68.5 % (42.2-75.2); PLT 280 X1000 (130-400); RBC 5.24 XMIL (4.7-6.1); WBC 12.56 X1000 (4.8-10.8)
[2018-06-22] MEDS: D5 1/2 NS + KCL 20 MEQ 1,000 ML IV SCH ×2 (12:10→21:30)
[2018-06-22] MEDS: M.V.I.-12 10 ML, FOLIC ACID 1 MG, MAGNESIUM SULFATE 1 GM, THIAMINE 100 MG in NS 1,000 ML IV SCH (12:11)
[2018-06-22 12:15] LABS: AGAP 12; ALB/GLOB RATIO 1.5; ALBUMIN 4.1 g/dL (3.5-5.0); ALKALINE PHOSPHATASE 86 U/L (32-122); BUN 16 mg/dL (8-22); CALCIUM 9.1 mg/dL (8.8-10.2); CHLORIDE 102 mmol/L (98-107); COSMO 290; CREATININE 1.1 mg/dL (0.7-1.2); ESTIMATED GFR > 60; GLUCOSE 195 mg/dL (70-104); GOT 104 U/L (10-34); GPT 99 U/L (10-44); POTASSIUM 3.9 mmol/L (3.5-5.1); SODIUM 142 mmol/L (136-145); TCO2 28 mmol/L (25-35); TOTAL BILIRUBIN 0.46 mg/dL (0.20-1.00); TOTAL PROTEIN 6.9 g/dL (6.3-8.3)
[2018-06-22] MEDS: HALDOL IV PRN ×2 (13:54→20:16)
[2018-06-22] MEDS: NON-FORMULARY MED (Brexpiprazole [Rexulti] 0 MG) PO SCH (21:00)
[2018-06-22] MEDS: PHENOBARBITAL IV PRN (21:47)
[2018-06-23] MEDS: DILANTIN IV SCH ×3 (01:16→17:40)
[2018-06-23] MEDS: ATIVAN 20 MG in NS 190 ML IV SCH ×2 (01:16→23:33)
[2018-06-23] MEDS: PHENOBARBITAL IV PRN ×5 (01:59→20:58)
[2018-06-23] MEDS: LIORESAL PO SCH ×3 (01:59→18:32)
[2018-06-23] MEDS: ATIVAN IV PRN ×4 (02:42→19:48)
--- NOTE | 2018-06-23 04:03 | PROGRESS NOTE ---
DATE: 06/22/2018 SUBJECTIVE: This morning Mr. Wynn continues to be in the ICU. He looks extremely agitated and boisterous. He is in 2-point restraint. I understand late last evening he had 2 seizures and that throughout the night he has been just agitated and seems to be in full- blown withdrawal. OBJECTIVE: Vital signs: Blood pressure 99/58, pulse is 84, respiration is 24, temperature 97 degrees. On general exam, Mr. Wynn is a 52-year-old male. He is in bed. He is not in any cardiopulmonary distress, but he is extremely agitated. Mucosa is pink and moist. Anicteric. Acyanotic. Neck is supple. Chest was clear to auscultation. No crepitations. No rhonchi. Cardiovascular was slightly tachycardic but no murmurs, no rubs, no gallops. Gastrointestinal: Abdomen is soft. Bowel sounds present. Extremities: No pedal edema. Central nervous system: Mr. Wynn is in restraint. He occasionally calms down, but then intermittently he is fighting the restraint, moving all over. Moves all extremities. DIAGNOSTIC STUDIES: Glucose is 197. So far, blood cultures have been negative for 48 hours. ASSESSMENT: 1. Altered mental status associated with agitation. I think this is a manifestation of some form of medication withdrawal, probably from all of the psychotropic and the benzodiazepines that he takes at home. There is also a remote history that he drinks a lot of alcohol; however, the girlfriend, who has been living with him for the past 2 weeks, stated that the patient does not drink any alcohol. We will continue using Ativan and p.r.n. Haldol for agitation. 2. Breakthrough seizures. The patient seems to carry the diagnosis of seizure disorder. He is unsure if this is any withdrawal type of seizures or is a true underlying seizure disorder. I do not see any medications at home that he takes. However, I understand the seizure was witnessed in the ER, and yesterday he had 2 witnessed seizures by the ICU nurse. He is currently on Keppra and Dilantin. We will get an EEG and also get Neurology to see him. 3. Uncontrolled diabetes mellitus with presenting A1c of 13.3. The patient is on insulin regimen. 4. History of major depressive disorder. We will continue with the current medications. 5. Transaminitis. Hepatitis panel is negative. We presume this is medication induced. We will continue to follow up. An ultrasound of the abdomen did show hepatomegaly with fatty infiltration of the liver, which makes steatohepatitis also a possible etiology. 6. Atypical chest pain, resolved. Stress test was negative. Patient was seen by Cardiology. 7. History of coronary artery disease status post stents in the past. The patient is asymptomatic. In general Mr. Wynn went into extreme agitation, boisterousness yesterday, presumably due to some form of withdrawal or associated with maybe delirium. He is currently on Ativan drip. We will start IV fluids for gentle hydration, including dextrose for calorie support. We will also get a bed bag, and we will use Haldol intermittently for any agitation. We will get Neurology and EEG tomorrow. cc: Aubrey Alvarez MD MTDD
[2018-06-23] MEDS: D5 1/2 NS + KCL 20 MEQ 1,000 ML IV SCH ×3 (06:29→23:26)
[2018-06-23] MEDS: HUMULIN R SUBQ SCH ×4 (06:30→21:19)
[2018-06-23] MEDS: PRILOSEC PO SCH (07:10)
[2018-06-23 07:24] LABS: AGAP 14; ALB/GLOB RATIO 1.1; ALBUMIN 3.3 g/dL (3.5-5.0); ALKALINE PHOSPHATASE 76 U/L (32-122); BUN 12 mg/dL (8-22); CALCIUM 8.3 mg/dL (8.8-10.2); CHLORIDE 106 mmol/L (98-107); COSMO 294; CREATININE 1.1 mg/dL (0.7-1.2); ESTIMATED GFR > 60; GLUCOSE 238 mg/dL (70-104); GOT 125 U/L (10-34); GPT 76 U/L (10-44); MAGNESIUM 1.9 mg/dL (1.5-2.7); PHOSPHORUS 3.9 mg/dL (2.7-4.5); POTASSIUM 4.2 mmol/L (3.5-5.1); SODIUM 144 mmol/L (136-145); TCO2 24 mmol/L (25-35); TOTAL BILIRUBIN 0.42 mg/dL (0.20-1.00); TOTAL PROTEIN 6.2 g/dL (6.3-8.3)
[2018-06-23] MEDS: HALDOL IV PRN (07:56)
[2018-06-23] MEDS: HUMALOG SUBQ SCH ×3 (08:24→17:34)
[2018-06-23] MEDS: ASPIRIN EC PO SCH (08:25)
[2018-06-23] MEDS: ABILIFY PO SCH (08:25)
[2018-06-23] MEDS: BASAGLAR SUBQ SCH (08:26)
[2018-06-23] MEDS: BUSPAR PO SCH ×2 (08:26→20:17)
[2018-06-23] MEDS: COZAAR PO SCH (08:26)
[2018-06-23] MEDS: CYMBALTA PO SCH (08:26)
[2018-06-23] MEDS: MYSOLINE PO SCH ×2 (08:27→20:47)
[2018-06-23] MEDS: LIPITOR PO SCH (08:27)
[2018-06-23] MEDS: LOPRESSOR PO SCH ×2 (08:27→20:47)
[2018-06-23] MEDS: SINGULAIR PO SCH (08:28)
[2018-06-23] MEDS: REQUIP PO SCH ×4 (08:28→20:47)
[2018-06-23] MEDS: ZETIA PO SCH (08:28)
[2018-06-23] MEDS: KEPPRA PO SCH (08:38)
[2018-06-23] MEDS ORDERED: VALIUM IV ONE (09:41)
[2018-06-23] MEDS: M.V.I.-12 10 ML, FOLIC ACID 1 MG, MAGNESIUM SULFATE 1 GM, THIAMINE 100 MG in NS 1,000 ML IV SCH ×2 (09:51→11:08)
[2018-06-23 10:09] LABS: BASO# 0.02 X1000 (0.0-0.2); BASO% 0.2 % (0.0-0.8); EOS# 0.13 X1000 (0.0-0.7); EOS% 1.1 % (0.0-10.0); HEMATOCRIT 40.2 % (42.0-52.0); HEMOGLOBIN 12.7 g/dL (14.0-18.0); IMM GRAN# 0.03 X1000 (0.0-0.04); IMM GRAN% 0.2 % (0.0-0.5); LYMPH# 1.85 X1000 (1.2-3.4); LYMPH% 15.2 % (20.5-51.1); MCH 26.1 PG (27-31); MCHC 31.6 g/dL (33-37); MCV 82.7 FL (81-99); MONO# 1.19 X1000 (0.11-0.59); MONO% 9.8 % (1.7-9.3); MPV 12.5 FL (7.4-10.4); NEUT# 8.95 X1000 (1.4-6.5); NEUT% 73.5 % (42.2-75.2); PLT 235 X1000 (130-400); RBC 4.86 XMIL (4.7-6.1); RDW 15.4 % (11.5-14.5); WBC 12.17 X1000 (4.8-10.8)
[2018-06-23] MEDS: VALIUM IV SCH ×4 (10:24→23:11)
--- NOTE | 2018-06-23 10:24 | PROGRESS NOTE ---
DATE: 06/23/2018 SUBJECTIVE: This morning Mr. Wynn continues to be extremely obtunded and nonverbal. Per the nursing staff, he has been extremely agitated throughout the night and early this morning. OBJECTIVE: Vital signs: Blood pressure is 125/85, pulse is 115, respiration is 20, temperature is 97.6 degrees. On general exam, Mr. Wynn is a 52-year-old male. He is in bed. He does not seem to be in any cardiopulmonary distress. Mucosa is pink and moist. Anicteric. Acyanotic. Neck is supple. He has a short neck. Chest: Air entry is bilaterally reduced, but no crackles and no crepitations. Cardiovascular: Regular rate and rhythm, slightly tachycardic. No murmurs. Abdomen is soft, distended. Bowel sounds are present. Extremities: No pedal edema. Central Nervous System: Mr. Wynn is in 4-point restraint. He keeps moving all over the place. Eyes closed. Extremely lethargic. He will not respond to any verbal stimulation. LABORATORY DATA: CBC is still pending. Chemistry is unremarkable. Glucose is 238. Liver function tests still minimally elevated. MICROBIOLOGICAL DATA: So far blood culture and urine cultures have been negative. MEDICATION: The patient's current medications have all been reviewed. ASSESSMENT: 1. Altered mental status associated with agitation and no focal neurological deficit. A CT scan of the head showed no evidence of intracranial pathology. We think this is toxic metabolic encephalopathy from possible medication or alcohol withdrawal. We will continue with Valium and antipsychotics for management. 2. Breakthrough seizures. Neurology has been consulted. EEG is still pending today. We will follow up with further recommendations from them. Patient is currently on Dilantin and Keppra. 3. Uncontrolled diabetes mellitus. Presenting A1c is 13.3. We will continue with the insulin regimen. 4. History of major depressive disorder. We will see if we can get the patient with an NG tube and start him on his home medications. 5. Transaminitis with hepatitis panel negative, presumably from fatty liver disease (steatohepatitis). 6. Atypical chest pain on presentation with negative stress test. 7. History of coronary artery disease status post stents, asymptomatic. This morning, Mr. Wynn continues to be remarkably altered., We still think it is a combination of either drugs or alcohol withdrawal. It could also be a flare up of his underlying psychiatric disorder. We will try and get an NG tube in place so that we can ensure that he is getting his antipsychotics. We will also start him on Clinimix for nutritional support, and I have added Valium for long-acting sedation. Will be coming off on the Ativan protocol for alcohol withdrawal. We will follow up with further recommendations from Neurology. cc: Aubrey Alvarez MD MTDParas
[2018-06-23] MEDS: CLINIMIX E 4.25%-5% SOLUTION 1,000 ML IV SCH ×2 (10:25→23:26)
[2018-06-23 10:40] LABS: ALLEN TEST YES; BE 3.4 mmoll (-3.0-3.0); BLOOD TYPE ARTERIAL; HCO3-(ACT) 27.6 mmoll (20.0-26.0); METHB 0.9 % (0.0-1.5); O2(CT) 14.2 mL/dL (15.0-23.0); PCO2(98.6) 29 mmHg (35-45); PO2(98.6) 145 mmHg (60-100); SAMPLE BLOOD; SAO2 98.6 % (95.0-100.0); THB 10.2 g/dL (11.5-17.4); pH(98.6) 7.55 (7.35-7.45)
[2018-06-23 10:41] LABS: MODALITY CANNULA
[2018-06-23] MEDS: KEPPRA 1,000 MG in NS 100 ML IV SCH ×2 (10:42→21:20)
--- NOTE | 2018-06-23 12:16 | CONSULTATION ---
DATE OF CONSULTATION: 06/23/2018 HISTORY: Mr. Wynn is 52 years old, and there was reported chronic seizure disorder treated with levetiracetam. I do not know any details of prior seizure disorder, date of onset, seizure frequency or character, prior management. By report, he has had some recent seizures and he presented with chest pain. There is reported to be history of ethanol use. Workup here includes noncontrast CT reported unremarkable. Urine drug screen was all negative. Serum ethanol was none detected on admission. Liver enzymes are elevated. Blood sugar was initially greater than 500, and now in the mid 200s. He has been afebrile. PHYSICAL EXAMINATION: On exam, Mr. Wynn is supine, restrained, squirming, moving all limbs, grunting, sweating, and rolling partially from the left to the right, turning his head left and right, moving eyes spontaneously left and right. He has some increased tone in the neck proportionate to his limb rigidity, but there is no meningismus. Head is unremarkable. Corneal reflexes are present bilaterally. Limb tone is symmetric, difficult to fitting room attendant with the persistent spontaneous movement. He has knee reflexes grading 1+ bilaterally. I could not elicit ankle reflexes bilaterally, but not certain those are absent, difficult to fitting room attendant with the persistent movement. Plantar response is uncertain bilaterally. IMPRESSION: Apparent ethanol withdrawal, DTs, earlier reported seizure, no recent reported seizure recognized. I do not have details of past seizure history. There is report that he was taking levetiracetam at uncertain dose prior to this admission. He is not able to swallow now, and we can make the levetiracetam IV, continue 1000 mg q.12 hours as has been ordered since admission. He has phenytoin on board now. His home medicine list includes Mysoline which would provide some seizure prophylaxis if he has been taking that. Urine drug screen was negative for phenobarbital, which makes me suspect he was not taking Mysoline. No other suggestions right now from Neurology standpoint. Further plans will depend on his clinical course. We might need to consider EEG later. Thank you for asking Neurology to see Mr. Wynn. cc: MD RENETTA Baker III
[2018-06-23] MEDS ORDERED: NS 0 ML ONE (13:18)
[2018-06-23 15:30] LABS: INR 1.03; PROTIME 14.4 Seconds (11.0-16.0)
--- NOTE | 2018-06-23 18:07 | Diag Imaging Result Doc PS360 ---
EXAM: CHEST-PORTABLE 06/23/2018 HISTORY: NGT placement TECHNIQUE: AP portable upright at 1753 COMMENT: There is an NG tube the tip of which is apparently in the stomach. IMPRESSION: NG tube in the stomach. Electronically signed by Randy Higginbotham 06/23/2018 6:05 PM
[2018-06-23] MEDS: NON-FORMULARY MED (Brexpiprazole [Rexulti] 0 MG) PO SCH (21:19)
[2018-06-23] MEDS ORDERED: MORPHINE IV ONE (22:05)
[2018-06-23 22:07] LABS: ALLEN TEST YES; BE 2.7 mmoll (-3.0-3.0); BLOOD TYPE ARTERIAL; HCO3-(ACT) 26.9 mmoll (20.0-26.0); METHB 0.7 % (0.0-1.5); O2(CT) 17.5 mL/dL (15.0-23.0); O2HB 93.8 % (95.0-99.0); PCO2(98.6) 36 mmHg (35-45); PO2(98.6) 57 mmHg (60-100); SAMPLE BLOOD; SAO2 95.7 % (95.0-100.0); THB 13.3 g/dL (11.5-17.4); pH(98.6) 7.47 (7.35-7.45)
[2018-06-23 22:09] LABS: MODALITY CANNULA
[2018-06-23] MEDS: DUONEB (A & A) INH PRN (23:22)
[2018-06-24] MEDS: PHENOBARBITAL IV PRN ×2 (00:18→09:13)
[2018-06-24] MEDS: LIORESAL PO SCH ×3 (01:45→18:00)
[2018-06-24] MEDS: DILANTIN IV SCH ×3 (01:45→18:00)
[2018-06-24] MEDS ORDERED: LASIX IV ONE ×2 (01:59→09:43)
[2018-06-24] MEDS ORDERED: LASIX ONE (02:10)
[2018-06-24] MEDS ORDERED: AMIDATE ONE (02:13)
[2018-06-24] MEDS ORDERED: QUELICIN ONE (02:14)
[2018-06-24] MEDS ORDERED: QUELICIN IV ONE (02:20)
[2018-06-24] MEDS ORDERED: AMIDATE IV ONE (02:20)
[2018-06-24] MEDS ORDERED: LEVOPHED 8 MG in D5 1/2 NS 250 ML IV SCH (02:45)
[2018-06-24] MEDS: DUONEB (A & A) INH PRN ×4 (03:20→23:15)
[2018-06-24] MEDS: VALIUM IV SCH (04:51)
[2018-06-24 05:00] LABS: ALLEN TEST YES; BE -1.7 mmoll (-3.0-3.0); BLOOD TYPE ARTERIAL; HCO3-(ACT) 23.6 mmoll (20.0-26.0); O2(CT) 20.4 mL/dL (15.0-23.0); O2HB 97.2 % (95.0-99.0); PCO2(98.6) 50 mmHg (35-45); PO2(98.6) 335 mmHg (60-100); SAMPLE BLOOD; SAO2 99.3 % (95.0-100.0); SRATE 16 BPM; THB 14.3 g/dL (11.5-17.4); TVOL 550 mL; pH(98.6) 7.31 (7.35-7.45)
[2018-06-24 05:04] LABS: MODALITY VENTILATOR
[2018-06-24 06:24] LABS: URINE SOURCE CATH
[2018-06-24] MEDS: SODIUM CHLORIDE 0.9% INJ SCH (06:39)
[2018-06-24] MEDS: HUMULIN R SUBQ SCH ×4 (06:39→20:33)
[2018-06-24] MEDS: PROTONIX IV SCH (06:39)
[2018-06-24 06:41] LABS: BILIRUBIN URINE SMALL (NEGATIVE); BLOOD URINE LARGE (NEGATIVE); COLOR YELLOW; GLUCOSE URINE 100 mg/dL (NEGATIVE); KETONE URINE TRACE mg/dL (NEGATIVE); LEUKOCYTES URINE LARGE (NEGATIVE); NITRITE URINE NEGATIVE (NEGATIVE); PROTEIN URINE 300 mg/dL (NEGATIVE); SP GRAVITY URINE 1.009; TURBIDITY URINE HAZY (CLEAR); UROBILINOGEN URINE NORMAL (NORMAL)
[2018-06-24 06:58] LABS: UR EPITHELIAL CELLS >10 /HPF (<10); URINE BACTERIA NEGATIVE /HPF; URINE RBC TNTC /HPF (<10); URINE WBC TNTC /HPF (<10)
[2018-06-24 07:07] LABS: URINE CASTS GRANULAR PRESENT; URINE CRYSTALS NONE SEEN; URINE SMALL ROUND CELLS NONE SEEN; URINE YEAST NONE SEEN
[2018-06-24 07:28] LABS: POTASSIUM 4.1 mmol/L (3.5-5.1); SODIUM 143 mmol/L (136-145)
[2018-06-24 07:29] LABS: AGAP 10; BUN 7 mg/dL (8-22); CHLORIDE 105 mmol/L (98-107); COSMO 289; CREATININE 0.9 mg/dL (0.7-1.2); ESTIMATED GFR > 60; GLUCOSE 209 mg/dL (70-104); MAGNESIUM 2.1 mg/dL (1.5-2.7); TCO2 28 mmol/L (25-35)
--- NOTE | 2018-06-24 08:22 | Diag Imaging Result Doc PS360 ---
EXAM: CHEST-PORTABLE INDICATION: intubated TECHNIQUE: One view COMPARISON: 06/24/2018 FINDINGS: The NG tube is in stable position. There has been placement of an ET tube. The tip projects over the lower trachea and above the britton at about the T5 level. There is no discrete pleural fluid collection or pneumothorax. The cardiomediastinal silhouette and central vasculature are grossly unremarkable. IMPRESSION: Interval placement of ET tube. Stable chest, otherwise. Electronically signed by Ahmet Maher 06/24/2018 8:20 AM
--- NOTE | 2018-06-24 08:23 | Diag Imaging Result Doc PS360 ---
EXAM: CHEST-PORTABLE INDICATION: Crackles Bilaterally,Dyspnea,Hypoxia TECHNIQUE: One view COMPARISON: 06/23/2018 FINDINGS: The NG tube is in stable position. The lungs are grossly clear. There is no discrete pleural fluid collection or pneumothorax. The cardiomediastinal silhouette and central vasculature are grossly unremarkable. IMPRESSION: Stable chest with no definite acute pathology by plain radiograph. Electronically signed by Ahmet Maher 06/24/2018 8:21 AM
[2018-06-24 08:29] LABS: BASO# 0.03 X1000 (0.0-0.2); BASO% 0.2 % (0.0-0.8); EOS# 0.06 X1000 (0.0-0.7); EOS% 0.3 % (0.0-10.0); HEMATOCRIT 41.8 % (42.0-52.0); HEMOGLOBIN 12.9 g/dL (14.0-18.0); IMM GRAN# 0.04 X1000 (0.0-0.04); IMM GRAN% 0.2 % (0.0-0.5); LYMPH# 2.17 X1000 (1.2-3.4); LYMPH% 12.2 % (20.5-51.1); MCH 26.5 PG (27-31); MCHC 30.9 g/dL (33-37); MONO# 1.86 X1000 (0.11-0.59); MONO% 10.5 % (1.7-9.3); MPV 12.1 FL (7.4-10.4); NEUT# 13.62 X1000 (1.4-6.5); NEUT% 76.6 % (42.2-75.2); PLT 239 X1000 (130-400); RBC 4.86 XMIL (4.7-6.1); WBC 17.78 X1000 (4.8-10.8)
[2018-06-24] MEDS: CYMBALTA PO SCH (08:32)
[2018-06-24] MEDS: ZETIA PO SCH (08:33)
[2018-06-24] MEDS: MYSOLINE PO SCH ×2 (08:33→20:41)
[2018-06-24] MEDS: COZAAR PO SCH (08:34)
[2018-06-24] MEDS: ASPIRIN EC PO SCH (08:34)
[2018-06-24] MEDS: REQUIP PO SCH ×4 (08:34→22:39)
[2018-06-24] MEDS: LIPITOR PO SCH (08:34)
[2018-06-24] MEDS: ABILIFY PO SCH (08:34)
[2018-06-24] MEDS: SINGULAIR PO SCH (08:34)
[2018-06-24] MEDS: BUSPAR PO SCH ×2 (08:34→20:42)
[2018-06-24] MEDS ORDERED: NS 250 ML ONE (08:54)
[2018-06-24] MEDS: ATIVAN IV PRN (09:20)
[2018-06-24] MEDS: DIPRIVAN 1% 1,000 MG/100 ML BOTTLE IV SCH ×4 (09:30→22:29)
[2018-06-24 09:31] LABS: ALBUMIN 3.1 g/dL (3.5-5.0); CALCIUM 8.8 mg/dL (8.8-10.2); CREATININE 1.3 mg/dL (0.7-1.2); PHOSPHORUS 3.5 mg/dL (2.7-4.5); POTASSIUM 4.8 mmol/L (3.5-5.1)
--- NOTE | 2018-06-24 09:57 | PROGRESS NOTE ---
DATE: 06/24/2018 SUBJECTIVE: He sees Dr. Escobedo at [place], [place], came in with chest pain. A 52-year-old with past medical history of angioplasty with stent placement a few years ago. The patient reports that since that time, he has been taking daily aspirin. Approximately 4 weeks ago, instructed by his surgeon who performed his hernia repair, to stop taking his aspirin due to some reported bleeding complications. Patient states that over the past 3 months he has had approximately 5 episodes of chest pain, but when he sits down and rests, the chest pain does not always subside so he came to the hospital and was admitted on the . Reviewed cardiac enzymes. Echocardiogram that was done on 06/20/2018 appears to have an ejection fraction of 65%. Estimated left ventricular ejection fraction appears to be at least 65%. Normal left ventricular wall motion and did not see any significant valvular dysfunction. He had a myocardial perfusion scan on 06/20/2018. There was no convincing evidence of inducible myocardial ischemia. Normal left ventricular function once again appreciated. Had altered mental status, no focal neurologic deficits, and felt this could possibly be from medication or alcohol withdrawal. He had some breakthrough seizures and Neurology is involved. This morning he is sleeping, was not responsive. OBJECTIVE: Vital Signs: Remains afebrile, temperature 97 degrees, pulse was 97, respirations 24, blood pressure 143/51. HEENT: Pupils are equal and round. Lungs: Clear in all lung alvarado. Cardiovascular: Regular rhythm and rate without murmur or S3. Genitourinary: Urine output was 2900 mL. ASSESSMENT AND PLAN: 1. Altered mental status associated with agitation. No focal neurologic deficits. CT of the head showed no evidence of intracranial pathology. We think this is toxic metabolic encephalopathy possibly from medication or alcohol withdrawal, so continue the Valium, antipsychotics as needed. He may require hand and leg restrictions. 2. Breakthrough seizures. Neurology has been consulted. EEG has been done. The patient currently on Dilantin and Keppra. 3. Uncontrolled diabetes mellitus type 2. Hemoglobin A1c was 13.3, so he is on a sliding scale. 4. History of major depressive order, continue trying to see if we can continue some of his medications through the NG tube. 5. Transaminitis. Hepatitis profile was negative. Presumably fatty liver disease, steatohepatitis. 6. Atypical chest pain. Negative stress test. Myocardial perfusion test was unremarkable. 7. History of coronary artery disease status post stents. So feel like this may be a combination of either drugs or alcohol withdrawal and a flare-up of his psychiatric disorder. REVIEW OF ORDERS: His orders is on Abilify 2 mg p.o. daily, aspirin 81 mg a day, Lipitor 10 mg a day, baclofen 5 mg p.o. q.8 hours p.r.n., multivitamin 1 bag q.24 hours, Dilantin 100 mg IV every 8, Lopressor 50 mg b.i.d., Cozaar 50 mg a day, Requip 1 mg p.o. 4 times a day. He is on D5 1/2 normal saline at 75 mL an hour. He is on BuSpar 30 mg b.i.d., and getting Valium 5 mg IV q.6 hours. cc: Migue Salas MD
[2018-06-24] MEDS: HUMALOG SUBQ SCH ×3 (10:51→18:29)
[2018-06-24] MEDS: BASAGLAR SUBQ SCH (10:52)
[2018-06-24] MEDS: LOPRESSOR PO SCH ×2 (10:52→20:42)
[2018-06-24] MEDS: KEPPRA 1,000 MG in NS 100 ML IV SCH ×2 (10:55→21:10)
[2018-06-24] MEDS: M.V.I.-12 10 ML, FOLIC ACID 1 MG, MAGNESIUM SULFATE 1 GM, THIAMINE 100 MG in NS 1,000 ML IV SCH (12:00)
[2018-06-24] MEDS ORDERED: VANCOMYCIN 1 GM/NS 1 GM/250 ML IVPB IV ONE (12:39)
[2018-06-24] MEDS ORDERED: VANCOMYCIN IV PER PHARMACY MISC SCH (12:45)
[2018-06-24] MEDS: LEVAQUIN 500 MG/D5W 500 MG/100 ML IVPB IV SCH (13:04)
[2018-06-24] MEDS: VANCOMYCIN 2 GM in NS 500 ML IV SCH (14:36)
[2018-06-24] MEDS ORDERED: ATIVAN 20 MG in NS 190 ML IV SCH (15:00)
--- NOTE | 2018-06-24 16:39 | PROGRESS NOTE ---
DATE: 06/24/2018 SUBJECTIVE: Mr. Wynn has not had definite seizure recognized clinically in recent hours. He is sedated now with propofol. Phenytoin is 100 mg IV q.8 h. Primidone has been resumed 150 mg b.i.d. He has had phenobarbital 130 mg twice since midnight for seizures. He has levetiracetam 1000 mg q.12 h. started 3 doses ago. I do not think he has had his p.r.n. lorazepam recently. LABORATORY DATA: Lab shows WBC about 18,000, blood sugars low 200s, mildly elevated liver enzymes. Creatinine up to 1.3. OBJECTIVE: On exam, he is unresponsive consistent with level of sedatives on board. There is minimal lateral eye movement with passive head turning. There was very slight pupil reaction to bright light. I could not see definite corneal reflex. Limb tone is symmetric. Neck is supple. IMPRESSION: Global encephalopathy, currently heavily sedated, seizure and likely withdrawal state on presentation, no definite clinical seizure in recent hours. Will check phenytoin and phenobarbital levels and, since creatinine is increased, will check levetiracetam level. EEG is planned and for that to be helpful, will need propofol held. Further plans will depend on levels reported and on his clinical course. Thanks for asking Neurology to see Mr. Wynn. cc: MD RENETTA Baker III
--- NOTE | 2018-06-24 20:21 | CONSULTATION ---
DATE OF CONSULTATION: 06/24/2018 REQUESTING PROVIDER: JENNYFER Yanes REASON FOR CONSULTATION: Ventilator management. HISTORY OF PRESENT ILLNESS: This is a 52-year-old male with a medical history of COPD, sleep apnea, morbid obesity, congestive heart failure, coronary artery disease, hypertension, hyperlipidemia, diabetes, seizure, essential tremor, restless legs syndrome, gastroesophageal reflux disease, glaucoma, major depression disorder, and alcohol abuse. He presented to the ER on 06/20/2018 with intermittent stabbing chest pain for 10 days. He also developed a witnessed seizure upon arrival to the ER. Initial workup revealed hypoglycemia, hypercapnia and elevated liver enzymes. He has been admitted to the ICU for further evaluation and management. During this hospital stay, the patient continued to be remarkably altered. He had 2 witnessed seizures on 06/21/2018. And his respiratory status declined significantly last night. Chest x-ray was unremarkable, but copious blood-tinged sputum and audible crackles were documented. He was eventually intubated early this morning at 2 a.m. At the time of my examination patient is lying in bed with moderate acute distress. He is restless, tachypneic and diaphoretic. He is on lorazepam drip at this time. He is unresponsive to verbal or physical stimuli. There is pink foamy secretion in the ET tube. Urine in the bedside urine collection bag is cloudy and dark natasha. His current blood pressure is 87/50. Nurse at the bedside reports that the patient's urine output has been significantly decreased since last night. There is no family at the bedside. All other information is obtained from the E-chart. PAST MEDICAL AND SURGICAL HISTORY: 1. COPD. 2. Sleep apnea. 3. Morbid obesity. Current BMI 37.1 with hypertension, hyperlipidemia, and diabetes. 4. Congestive heart failure. 5. Coronary artery disease, status post angioplasty. 6. Hypertension. 7. Hyperlipidemia. 8. Diabetes mellitus type 2. 9. Seizure disorder. 10. Essential tremor. 11. Restless legs syndrome. 12. Gastroesophageal reflux disease. 13. Glaucoma. 14. Anxiety. 15. Major depressive disorder. 16. Alcohol abuse. 17. Hernia repair. 18. Tonsillectomy. 19. Adenoidectomy. 20. Left lower leg surgery. SOCIAL HISTORY: Per E-chart, patient is disabled. He is a former smoker and quit 5 years ago. He used to smoke up to 2 packs per day and since he was a 28-year-old. He drinks daily approximately 500 mL of liquor per day. He denied any illicit drug use. FAMILY HISTORY: Unknown. ALLERGIES: Penicillin, ibuprofen, Librium. REVIEW OF SYSTEMS: Unable to be obtained. PHYSICAL EXAMINATION: Vital Signs: Temperature 98.4, blood pressure 143/51, pulse 97, respiratory rate 24, oxygen saturation 98% on AC mechanical ventilator with spontaneous rate 16, FiO2 100%, tidal volume 550, and PEEP 5.0. HEENT: Atraumatic. Trachea midline. Mucosa pink and slightly dry. Respiratory: Symmetrical excursion. Clear to auscultation bilaterally. Cardiovascular: Regular rate and rhythm. Gastrointestinal: Bowel sounds present in all 4 quadrants, soft and protuberant. Extremities: Pedal edema 1+. No cyanosis. No clubbing. Warm to touch. Neurologic: Sedated. Unresponsive to verbal or physical stimuli. LABORATORY DATA: White blood cells 17.78, hemoglobin 12.9, hematocrit 41.8, platelet 239,000. Sodium 143, potassium 4.1, chloride 105, carbon dioxide 28, BUN 7, creatinine 0.9, glucose 208, ProBNP 247. ABG: pH 7.31, pCO2 50, pO2 335, HC03 23.6, base excess -1.7 and oxyhemoglobin 97.2. IMAGING DATA: Chest x-ray showed interval placement of ET tube. No discrete pleural fluid collection or pneumothorax. The cardiomediastinal silhouette and ventral vasculature are grossly unremarkable. ASSESSMENT: This is a 52-year-old male with medical history of chronic obstructive pulmonary disease, sleep apnea, morbid obesity, congestive heart failure, coronary artery disease, hypertension, hyperlipidemia, diabetes, seizure disorder, essential tremor, restless legs syndrome, gastroesophageal reflux disease, glaucoma, major depressive disorder, alcohol abuse. He has been admitted to the ICU since 06/20/2018 with altered mental status, atypical chest pain, uncontrolled diabetes, and seizure. 1. Acute hypoxemic hypercapnic respiratory failure. 2. Altered mental status. 3. Breakthrough seizure. 4. Transaminitis. 5. Acute renal failure with oliguria. Last creatinine 1.36. 6. Leukocytosis. PLAN: 1. Continue AC mechanical ventilator. 2. Start propofol per Dr. Salas. 3. Start 2 broad-spectrum antibiotics. 4. Continue bronchodilators. 5. Follow up with ABGs, CBC, BMP, chest x-ray, sputum culture, urine culture and blood culture. 6. Consider graduation coach consultation if indicated. 7. Continue GI and DVT prophylaxis. 8. Further recommendations pending hospital course. Thank you for the courtesy of this consult. Dictated by JENNYFER Velasquez for Azam Li MD cc: JENNYFER Velasquez MD [facility]
[2018-06-24] MEDS: NON-FORMULARY MED (Brexpiprazole [Rexulti] 0 MG) PO SCH (20:42)
[2018-06-25] MEDS: DILANTIN IV SCH ×2 (00:12→09:47)
[2018-06-25] MEDS: LIORESAL PO SCH ×3 (00:16→17:24)
[2018-06-25] MEDS: DIPRIVAN 1% 1,000 MG/100 ML BOTTLE IV SCH ×6 (01:41→23:41)
[2018-06-25] MEDS: PROTONIX IV SCH (04:39)
[2018-06-25 04:50] LABS: BASO# 0.02 X1000 (0.0-0.2); BASO% 0.2 % (0.0-0.8); EOS# 0.21 X1000 (0.0-0.7); HEMATOCRIT 37.8 % (42.0-52.0); HEMOGLOBIN 11.6 g/dL (14.0-18.0); IMM GRAN# 0.02 X1000 (0.0-0.04); IMM GRAN% 0.2 % (0.0-0.5); LYMPH# 2.06 X1000 (1.2-3.4); LYMPH% 19.5 % (20.5-51.1); MCH 25.9 PG (27-31); MCHC 30.7 g/dL (33-37); MCV 84.4 FL (81-99); MONO# 1.07 X1000 (0.11-0.59); MONO% 10.1 % (1.7-9.3); PLT 228 X1000 (130-400); RBC 4.48 XMIL (4.7-6.1); RDW 15.9 % (11.5-14.5); WBC 10.58 X1000 (4.8-10.8)
[2018-06-25 05:07] LABS: ALLEN TEST YES; BE 2.4 mmoll (-3.0-3.0); BLOOD TYPE ARTERIAL; HCO3-(ACT) 26.8 mmoll (20.0-26.0); METHB 1.1 % (0.0-1.5); O2HB 96.7 % (95.0-99.0); PCO2(98.6) 38 mmHg (35-45); PO2(98.6) 154 mmHg (60-100); SAMPLE BLOOD; SAO2 98.9 % (95.0-100.0); SRATE 16 BPM; THB 12.3 g/dL (11.5-17.4); TVOL 55 mL; pH(98.6) 7.45 (7.35-7.45)
[2018-06-25 05:08] LABS: MODALITY VENTILATOR
[2018-06-25 05:29] LABS: AGAP 12; ALB/GLOB RATIO 1.4; ALKALINE PHOSPHATASE 74 U/L (32-122); BUN 14 mg/dL (8-22); CALCIUM 8.3 mg/dL (8.8-10.2); CHLORIDE 108 mmol/L (98-107); COSMO 296; CREATININE 1.1 mg/dL (0.7-1.2); ESTIMATED GFR > 60; GLUCOSE 223 mg/dL (70-104); GOT 78 U/L (10-34); GPT 49 U/L (10-44); POTASSIUM 3.7 mmol/L (3.5-5.1); SODIUM 145 mmol/L (136-145); TCO2 25 mmol/L (25-35); TOTAL BILIRUBIN 0.36 mg/dL (0.20-1.00); TOTAL PROTEIN 5.2 g/dL (6.3-8.3)
[2018-06-25] MEDS: HUMULIN R SUBQ SCH ×4 (06:08→20:20)
--- NOTE | 2018-06-25 06:48 | Diag Imaging Result Doc PS360 ---
EXAM: CHEST-1 VIEW HISTORY: SOB TECHNIQUE: Portable chest single view COMPARISON: 06/24/2018 FINDINGS: Endotracheal and nasogastric tubes in good position. Lungs remain expanded and clear. No cardiomegaly. No pulmonary edema. IMPRESSION: Stable chest. Electronically signed by Kiko Hewitt 06/25/2018 6:45 AM
[2018-06-25] MEDS: DUONEB (A & A) INH PRN ×3 (08:17→23:34)
--- NOTE | 2018-06-25 09:27 | PROGRESS NOTE ---
DATE: 06/25/2018 SUBJECTIVE: Mr. Wynn is intubated and he is sedated right now. He is in 4-point restraint. He is very strong. I think he broke a couple of the restraints but right now he is calm and sleeping. OBJECTIVE: Vital Signs: Temperature 98.3 degrees, pulse 70, respirations 16, blood pressure 95/49. HEENT: Pupils are equal and round. Lungs: Lungs are clear in all lung alvarado. Cardiovascular: Regular rhythm and rate without murmur or S3 Abdomen: Soft. Skin: Warm and dry. DATA: Urine output is 2400 mL. Blood sugars 224, 227, and 194. Chest x-ray from this morning with stable chest. Endotracheal and nasogastric tube in good position. Lungs remain expanded. No cardiomegaly. ASSESSMENT AND PLAN: 1. Acute hypoxemic hypercapnic respiratory failure. Continue bronchodilators and supplementary oxygen. He is intubated. He is on 2 broad-spectrum antibiotics which will continue. He will continue on the AC mechanical ventilator. 2. Altered mental status. Impression is global encephalopathy, currently heavily sedated. Seizures likely withdrawal state and so checking the phenytoin and phenobarbital levels and, because the creatinine is increased, so follow the tyrosine level. EEG is planned. 3. Diabetes mellitus type 2. Sugars under pretty good control. 4. History of major depression. Trying to continue some of his medications through the NG tube. 5. Transaminitis, presumably fatty liver disease and steatohepatitis. 6. Atypical chest pain. Myocardial perfusion test was unremarkable. 7. Coronary artery disease status post stents. He does not appear to be having active ischemia. Reviewed his orders I do not see any change at this point. cc: Migue Salas MD
[2018-06-25] MEDS: LEVAQUIN 500 MG/D5W 500 MG/100 ML IVPB IV SCH (09:45)
[2018-06-25] MEDS: SINGULAIR PO SCH (09:47)
[2018-06-25] MEDS: MYSOLINE PO SCH ×2 (09:47→20:11)
[2018-06-25] MEDS: ABILIFY PO SCH (09:48)
[2018-06-25] MEDS: ZETIA PO SCH (09:48)
[2018-06-25] MEDS: ASPIRIN EC PO SCH (09:48)
[2018-06-25] MEDS: CYMBALTA PO SCH (09:48)
[2018-06-25] MEDS: BUSPAR PO SCH ×2 (09:48→20:11)
[2018-06-25] MEDS: COZAAR PO SCH (09:48)
[2018-06-25] MEDS: REQUIP PO SCH ×4 (09:48→20:10)
[2018-06-25] MEDS: LIPITOR PO SCH (09:49)
[2018-06-25] MEDS: HUMALOG SUBQ SCH ×3 (09:51→17:23)
[2018-06-25] MEDS: BASAGLAR SUBQ SCH (09:52)
[2018-06-25] MEDS: KEPPRA 1,000 MG in NS 100 ML IV SCH ×2 (09:52→21:03)
[2018-06-25] MEDS: LOPRESSOR PO SCH ×2 (09:53→20:10)
[2018-06-25] MEDS: M.V.I.-12 10 ML, FOLIC ACID 1 MG, MAGNESIUM SULFATE 1 GM, THIAMINE 100 MG in NS 1,000 ML IV SCH (11:00)
[2018-06-25] MEDS ORDERED: CEREBYX IV SCH (12:00)
--- NOTE | 2018-06-25 12:13 | PROGRESS NOTE ---
DATE: 06/25/2018 Mr. Wynn continues heavily sedated, intubated, mechanically ventilated. He has not had clinically apparent seizure recently. On exam, corneal reflexes are sluggish but present bilaterally. There is slow pupil reaction to sustained bright light bilaterally. There is minimal lateral eye movement with passive head turning. There is slight withdrawal to noxious stimulation over the limbs and he did move each limb. Neck remains supple. Phenobarbital level late yesterday was 14.1, which is slightly subtherapeutic. Phenytoin level was 5.9, which is definitely subtherapeutic, even considering his nutritional state. Levetiracetam level is pending. Impression remains likely alcohol withdrawal syndrome, seizures, stable clinically in the last 24 hours. We will plan an EEG when practical but I do not think that would tar heat exchanger cleaner right now. We will try to get the phenytoin level therapeutic, wait on the levetiracetam level report, and follow clinically. Phenobarbital has been used as a p.r.n. and we may not need to continue that. Thanks for asking neurology to see Mr. Wynn. cc: Tonny Franco III, MD
[2018-06-25] MEDS: CEREBYX 200 MG in NS 50 ML IV SCH (13:10)
[2018-06-25] MEDS: VANCOMYCIN 2 GM in NS 500 ML IV SCH (13:17)
[2018-06-25] MEDS: NON-FORMULARY MED (Brexpiprazole [Rexulti] 0 MG) PO SCH (20:19)
[2018-06-26] MEDS: CEREBYX 200 MG in NS 50 ML IV SCH ×2 (00:13→14:07)
[2018-06-26] MEDS: LIORESAL PO SCH ×2 (00:17→08:25)
[2018-06-26] MEDS ORDERED: NS 500 ML IV SCH (01:45)
[2018-06-26] MEDS: DIPRIVAN 1% 1,000 MG/100 ML BOTTLE IV SCH ×7 (04:06→20:55)
[2018-06-26] MEDS: PROTONIX IV SCH (04:23)
[2018-06-26] MEDS: SODIUM CHLORIDE 0.9% INJ SCH (04:23)
[2018-06-26] MEDS: TYLENOL PO PRN (04:33)
[2018-06-26 05:07] LABS: ALLEN TEST YES; BE 2.4 mmoll (-3.0-3.0); BLOOD TYPE ARTERIAL; HCO3-(ACT) 26.7 mmoll (20.0-26.0); O2(CT) 13.8 mL/dL (15.0-23.0); O2HB 94.1 % (95.0-99.0); PCO2(98.6) 42 mmHg (35-45); PO2(98.6) 70 mmHg (60-100); SAMPLE BLOOD; SAO2 94.9 % (95.0-100.0); SRATE 16 BPM; THB 10.4 g/dL (11.5-17.4); TVOL 550 mL; pH(98.6) 7.42 (7.35-7.45)
[2018-06-26 05:09] LABS: MODALITY VENTILATOR
[2018-06-26 05:11] LABS: BASO# 0.02 X1000 (0.0-0.2); BASO% 0.2 % (0.0-0.8); EOS# 0.32 X1000 (0.0-0.7); EOS% 3.2 % (0.0-10.0); HEMATOCRIT 39.3 % (42.0-52.0); HEMOGLOBIN 12.1 g/dL (14.0-18.0); IMM GRAN# 0.02 X1000 (0.0-0.04); IMM GRAN% 0.2 % (0.0-0.5); LYMPH# 2.07 X1000 (1.2-3.4); LYMPH% 20.6 % (20.5-51.1); MCHC 30.8 g/dL (33-37); MCV 84.3 FL (81-99); MONO# 0.84 X1000 (0.11-0.59); MONO% 8.4 % (1.7-9.3); MPV 11.9 FL (7.4-10.4); NEUT# 6.77 X1000 (1.4-6.5); NEUT% 67.4 % (42.2-75.2); PLT 244 X1000 (130-400); RBC 4.66 XMIL (4.7-6.1); RDW 16.5 % (11.5-14.5); WBC 10.04 X1000 (4.8-10.8)
[2018-06-26] MEDS: HUMULIN R SUBQ SCH ×4 (06:12→20:39)
[2018-06-26 06:32] LABS: AGAP 13; ALB/GLOB RATIO 0.9; ALBUMIN 3.1 g/dL (3.5-5.0); ALKALINE PHOSPHATASE 86 U/L (32-122); BUN 13 mg/dL (8-22); CALCIUM 8.7 mg/dL (8.8-10.2); CHLORIDE 106 mmol/L (98-107); COSMO 287; CREATININE 0.9 mg/dL (0.7-1.2); ESTIMATED GFR > 60; GLUCOSE 200 mg/dL (70-104); GOT 74 U/L (10-34); GPT 45 U/L (10-44); SODIUM 141 mmol/L (136-145); TCO2 22 mmol/L (25-35); TOTAL BILIRUBIN 0.29 mg/dL (0.20-1.00); TOTAL PROTEIN 6.5 g/dL (6.3-8.3)
--- NOTE | 2018-06-26 07:07 | Diag Imaging Result Doc PS360 ---
EXAM: CHEST-1 VIEW 06/26/2018 HISTORY: SOB TECHNIQUE: AP portable at 0513 COMMENT: There is an endotracheal tube with its tip slightly below the thoracic inlet. There is an NG tube with its tip below the diaphragm. There is some apparent atelectasis in the medial right base which was not present on 06/24 or 06/25/2018. Otherwise, there has been no significant change. IMPRESSION: Right middle lobe atelectasis versus pneumonia. Electronically signed by Randy Higginbotham 06/26/2018 7:05 AM
[2018-06-26] MEDS: BUSPAR PO SCH ×2 (08:20→20:36)
[2018-06-26] MEDS: BASAGLAR SUBQ SCH (08:20)
[2018-06-26] MEDS: LEVAQUIN 500 MG/D5W 500 MG/100 ML IVPB IV SCH (08:20)
[2018-06-26] MEDS: CYMBALTA PO SCH (08:21)
[2018-06-26] MEDS: MYSOLINE PO SCH ×2 (08:24→20:34)
[2018-06-26] MEDS: SINGULAIR PO SCH (08:24)
[2018-06-26] MEDS: LOPRESSOR PO SCH ×2 (08:25→20:34)
[2018-06-26] MEDS: ZETIA PO SCH (08:25)
[2018-06-26] MEDS: LIPITOR PO SCH (08:25)
[2018-06-26] MEDS: ASPIRIN EC PO SCH (08:25)
[2018-06-26] MEDS: REQUIP PO SCH ×5 (08:25→20:35)
[2018-06-26] MEDS: ABILIFY PO SCH (08:25)
[2018-06-26] MEDS: COZAAR PO SCH (08:25)
[2018-06-26] MEDS: HUMALOG SUBQ SCH ×3 (08:26→16:23)
--- NOTE | 2018-06-26 08:50 | PROGRESS NOTE ---
DATE: 06/26/2018 SUBJECTIVE: Mr. Wynn is still in 4 point restraints. He had decreased urine output so we gave him a 500 mL normal saline bolus. We will probably follow that with another 500 mL. He remains afebrile. OBJECTIVE: Temperature 98.4 degrees, pulse 86, respirations 18, blood pressure 120/66. Pupils are equal and round. Lungs are clear in all lung alvarado. Cardiovascular Examination: Regular rhythm and rate without murmur or S3. Abdomen is soft. Urine output 1400 mL. Blood sugar 177 and 196. Chest x-ray, right middle lobe atelectasis versus pneumonia. ASSESSMENT AND PLAN: 1. Likely alcohol withdrawal seizures, clinically stable. We are going to continue to use Ativan and phenobarbital. He is still on the ventilator. We will follow his levetiracetam level. 2. Acute hypoxemic, hypercapnic respiratory failure, on the ventilator, treated with broad- spectrum antibiotics. 3. Diabetes mellitus type 2. 4. History of major depression in the past. 5. Transaminitis, suspect fatty liver disease. There is steatohepatitis. 6. Atypical chest pain. He has had a myocardial perfusion test which was unremarkable. 7. Coronary artery disease, status post stents. I do not believe he is having any type of ischemia at this time. Continue present measures. cc: Migue Salas MD
[2018-06-26] MEDS: DUONEB (A & A) INH PRN ×2 (09:39→16:10)
--- NOTE | 2018-06-26 10:02 | PROGRESS NOTE ---
DATE: 06/26/2018 Mr. Wynn was reported restless overnight and required increased propofol dose. He did not have behavior thought to be seizure. This morning, he is slightly more responsive to my stimulation compared to when I saw him yesterday. There is a little bit better lateral eye movement with head turning today. Pupils react more briskly today. He had more spontaneous limb movement and more brisk limb withdrawal from noxious stimulation. Neck is supple. No new thoughts from Neurology standpoint. I do not think he has had seizure recognized in recent days. The EEG is still considered, but will not be as helpful with propofol on board, and we can wait and see about EEG. Thanks for asking Neurology to see Mr. Wynn. cc: Tonny Franco III, MD MTDD
[2018-06-26] MEDS: M.V.I.-12 10 ML, FOLIC ACID 1 MG, MAGNESIUM SULFATE 1 GM, THIAMINE 100 MG in NS 1,000 ML IV SCH (11:52)
[2018-06-26] MEDS: KEPPRA 1,000 MG in NS 100 ML IV SCH ×2 (11:52→22:26)
[2018-06-26] MEDS ORDERED: NS 500 ML IV ONE (14:08)
[2018-06-26] MEDS: VANCOMYCIN 2 GM in NS 500 ML IV SCH (15:23)
[2018-06-26] MEDS: NON-FORMULARY MED (Brexpiprazole [Rexulti] 0 MG) PO SCH (21:50)
[2018-06-27] MEDS: DIPRIVAN 1% 1,000 MG/100 ML BOTTLE IV SCH ×9 (00:08→21:55)
[2018-06-27] MEDS: CEREBYX 200 MG in NS 50 ML IV SCH ×2 (01:43→12:59)
[2018-06-27] MEDS: LIORESAL PO SCH ×4 (02:15→16:25)
[2018-06-27] MEDS: DUONEB (A & A) INH PRN ×4 (03:21→21:21)
[2018-06-27] MEDS: TYLENOL PO PRN ×2 (04:04→16:25)
[2018-06-27 05:12] LABS: ALLEN TEST YES; BE 1.9 mmoll (-3.0-3.0); BLOOD TYPE ARTERIAL; HCO3-(ACT) 26.4 mmoll (20.0-26.0); METHB 1.1 % (0.0-1.5); O2(CT) 15.5 mL/dL (15.0-23.0); O2HB 94.7 % (95.0-99.0); PCO2(98.6) 41 mmHg (35-45); PO2(98.6) 79 mmHg (60-100); SAMPLE BLOOD; SAO2 97.1 % (95.0-100.0); SRATE 16 BPM; THB 11.6 g/dL (11.5-17.4); TVOL 550 mL; pH(98.6) 7.42 (7.35-7.45)
[2018-06-27 05:14] LABS: MODALITY VENTILATOR
[2018-06-27 05:34] LABS: BASO# 0.01 X1000 (0.0-0.2); BASO% 0.1 % (0.0-0.8); EOS# 0.27 X1000 (0.0-0.7); EOS% 3.6 % (0.0-10.0); HEMATOCRIT 36.3 % (42.0-52.0); HEMOGLOBIN 11.3 g/dL (14.0-18.0); IMM GRAN# 0.03 X1000 (0.0-0.04); IMM GRAN% 0.4 % (0.0-0.5); LYMPH# 1.73 X1000 (1.2-3.4); LYMPH% 23.2 % (20.5-51.1); MCH 26.3 PG (27-31); MCHC 31.1 g/dL (33-37); MCV 84.4 FL (81-99); MONO# 0.79 X1000 (0.11-0.59); MONO% 10.6 % (1.7-9.3); MPV 12.8 FL (7.4-10.4); NEUT# 4.63 X1000 (1.4-6.5); NEUT% 62.1 % (42.2-75.2); PLT 242 X1000 (130-400); RDW 16.7 % (11.5-14.5); WBC 7.46 X1000 (4.8-10.8)
[2018-06-27 06:02] LABS: AGAP 8; ALB/GLOB RATIO 0.9; ALBUMIN 2.8 g/dL (3.5-5.0); ALKALINE PHOSPHATASE 90 U/L (32-122); BUN 10 mg/dL (8-22); CALCIUM 8.5 mg/dL (8.8-10.2); CHLORIDE 106 mmol/L (98-107); COSMO 281; CREATININE 0.7 mg/dL (0.7-1.2); ESTIMATED GFR > 60; GLUCOSE 177 mg/dL (70-104); GOT 83 U/L (10-34); GPT 42 U/L (10-44); POTASSIUM 3.8 mmol/L (3.5-5.1); SODIUM 139 mmol/L (136-145); TCO2 25 mmol/L (25-35); TOTAL BILIRUBIN 0.24 mg/dL (0.20-1.00)
[2018-06-27] MEDS: PROTONIX IV SCH (06:51)
[2018-06-27] MEDS: HUMULIN R SUBQ SCH ×4 (06:51→22:28)
--- NOTE | 2018-06-27 07:27 | Diag Imaging Result Doc PS360 ---
EXAM: CHEST-1 VIEW INDICATION: SOB TECHNIQUE: One view COMPARISON: 06/26/2018 FINDINGS: Support tubes and lines are in stable positions. Vague right middle lobe atelectasis and/or infiltrate is approximately stable. Interstitial markings are slightly increased bilaterally suggesting mild edema. No other new consolidation is identified. Cardiac silhouette is stable. IMPRESSION: Slight increase in interstitial markings bilaterally. Stable chest, otherwise. Electronically signed by Ahmet Maher 06/27/2018 7:25 AM
[2018-06-27] MEDS: LEVAQUIN 500 MG/D5W 500 MG/100 ML IVPB IV SCH (08:22)
[2018-06-27] MEDS: BASAGLAR SUBQ SCH (08:22)
[2018-06-27] MEDS: HUMALOG SUBQ SCH ×3 (08:22→16:26)
[2018-06-27] MEDS: ABILIFY PO SCH (08:23)
[2018-06-27] MEDS: MYSOLINE PO SCH ×2 (08:23→21:26)
[2018-06-27] MEDS: ASPIRIN EC PO SCH (08:23)
[2018-06-27] MEDS: BUSPAR PO SCH ×2 (08:23→21:26)
[2018-06-27] MEDS: COZAAR PO SCH (08:23)
[2018-06-27] MEDS: SINGULAIR PO SCH (08:24)
[2018-06-27] MEDS: REQUIP PO SCH ×4 (08:24→21:26)
[2018-06-27] MEDS: LOPRESSOR PO SCH ×2 (08:24→21:26)
[2018-06-27] MEDS: ZETIA PO SCH (08:24)
[2018-06-27] MEDS: LIPITOR PO SCH (08:24)
[2018-06-27] MEDS ORDERED: LASIX IV ONE ×3 (09:00→16:45)
[2018-06-27] MEDS ORDERED: LASIX ONE (09:04)
--- NOTE | 2018-06-27 09:46 | PROGRESS NOTE ---
DATE: 06/27/2018 SUBJECTIVE: Mr. Wynn continues heavily sedated. With recent very brief propofol vacation, he became quickly restless with rapid respiratory rate. He has been noted to move all limbs. He has not had clinically apparent seizure. He continues on levetiracetam 1000 mg q. 12 hours and fosphenytoin 200 mg q. 12 hours. He has not received phenobarbital in 3 days. Levetiracetam level was 10.5 three days ago and phenytoin level was 5.9 three days ago. Phenytoin dose was increased after that subtherapeutic level was reported. Exam shows slight lateral eye movement with passive head turning. Pupils react to bright light. Corneal reflex is present bilaterally. He moved each leg in response to stroking the sole. Neck is supple. EEG is still considered, but will be of very limited benefit with propofol on board. He clearly will not tolerate propofol sedation, and EEG will be postponed again today. I am going to order levels again today. Thanks for asking Neurology to see Mr. Wynn. cc: MD RENETTA Baker III
[2018-06-27] MEDS: KEPPRA 1,000 MG in NS 100 ML IV SCH ×2 (11:05→21:50)
[2018-06-27] MEDS: M.V.I.-12 10 ML, FOLIC ACID 1 MG, MAGNESIUM SULFATE 1 GM, THIAMINE 100 MG in NS 1,000 ML IV SCH (11:05)
[2018-06-27] MEDS: VANCOMYCIN 2 GM in NS 500 ML IV SCH (14:30)
[2018-06-27] MEDS: ATIVAN IV PRN (14:55)
--- NOTE | 2018-06-27 16:06 | Diag Imaging Result Doc PS360 ---
EXAM: CHEST-PORTABLE 06/27/2018 HISTORY: respiratory distress TECHNIQUE: AP upright portable at 1556 COMMENT: There is an endotracheal tube with its tip just below the thoracic inlet and an NG tube which apparently passes below the diaphragm. Compared to the previous study of this date at 0531 there is slightly more platelike atelectasis over the right base. Otherwise are has been no significant change. IMPRESSION: Worsened right lower lobe atelectasis versus pneumonia. Electronically signed by Randy Higginbotham 06/27/2018 4:03 PM
[2018-06-27] MEDS: PHENOBARBITAL IV PRN (16:25)
--- NOTE | 2018-06-27 17:03 | PROGRESS NOTE ---
DATE: 06/27/2018 HISTORY OF PRESENT ILLNESS: Mr. Wynn has had a little more trouble, seems to be working moving the air. He is still intubated in four-point restraint. Checked a chest x-ray, his ET tube seemed to be in good position. OBJECTIVE: Vital Signs: Temperature 99.7 degrees, pulse 85, respirations 26, blood pressure 113/61. HEENT: Pupils are equal and round. Lungs: Clear in all lung alvarado. Cardiovascular: Regular rhythm and rate without murmur or S3. Abdomen: Soft, Skin: Warm and dry. DIAGNOSTIC DATA: Urine output is 6200 mL. Blood sugars 185,155, 133. Chest x-ray from this morning, worsening right lower lobe atelectasis versus pneumonia. ASSESSMENT AND PLAN: 1. Continue heavily sedated. He had a brief propofol vacation, quickly got restless and rapid respiratory rate. His levetiracetam is 1000 mg every 12 hours, fosphenytoin 200 mg every 12 hours, and he has not received phenobarbital for 3 days. Levetiracetam level was 10.5 three days ago. Phenytoin level was 5.9 three days ago, so phenytoin level was increased because it is subtherapeutic dose. EEG will be consider but very limited benefit with propofol on board. 2. Acute hypoxemic hypercapnic respiratory failure. Continue ventilator, broad-spectrum antibiotics. 3. Diabetes mellitus type 2. 4. History of major depression in the past. 5. Transaminitis, fatty liver disease, steatohepatitis. 6. Coronary artery disease, aware. 7. Continue present measures. We will continue trying to wean him off the ventilator. I do not see any change. cc: Migue Salas MD
[2018-06-27] MEDS: NON-FORMULARY MED (Brexpiprazole [Rexulti] 0 MG) PO SCH (21:26)
[2018-06-28] MEDS: CEREBYX 200 MG in NS 50 ML IV SCH ×2 (00:53→12:34)
[2018-06-28] MEDS: LIORESAL PO SCH ×5 (00:53→17:31)
[2018-06-28] MEDS: DIPRIVAN 1% 1,000 MG/100 ML BOTTLE IV SCH ×10 (02:00→22:19)
[2018-06-28] MEDS: DUONEB (A & A) INH PRN ×4 (03:27→21:50)
[2018-06-28] MEDS: PROTONIX IV SCH (05:16)
[2018-06-28 05:22] LABS: ALLEN TEST YES; BE 6.4 mmoll (-3.0-3.0); BLOOD TYPE ARTERIAL; HCO3-(ACT) 29.9 mmoll (20.0-26.0); METHB 1.2 % (0.0-1.5); O2(CT) 16.1 mL/dL (15.0-23.0); O2HB 95.7 % (95.0-99.0); PCO2(98.6) 41 mmHg (35-45); PO2(98.6) 93 mmHg (60-100); SAMPLE BLOOD; SAO2 98.1 % (95.0-100.0); SRATE 16 BPM; THB 11.9 g/dL (11.5-17.4); TVOL 550 mL; pH(98.6) 7.48 (7.35-7.45)
[2018-06-28 05:26] LABS: MODALITY VENTILATOR
[2018-06-28] MEDS: HUMULIN R SUBQ SCH ×5 (06:11→21:03)
[2018-06-28 06:18] LABS: BASO# 0.01 X1000 (0.0-0.2); BASO% 0.1 % (0.0-0.8); EOS# 0.35 X1000 (0.0-0.7); EOS% 4.4 % (0.0-10.0); HEMATOCRIT 36.1 % (42.0-52.0); HEMOGLOBIN 11.4 g/dL (14.0-18.0); IMM GRAN# 0.05 X1000 (0.0-0.04); IMM GRAN% 0.6 % (0.0-0.5); LYMPH# 1.62 X1000 (1.2-3.4); LYMPH% 20.4 % (20.5-51.1); MCH 26.6 PG (27-31); MCHC 31.6 g/dL (33-37); MCV 84.1 FL (81-99); MONO# 1.01 X1000 (0.11-0.59); MONO% 12.7 % (1.7-9.3); MPV 12.9 FL (7.4-10.4); NEUT# 4.91 X1000 (1.4-6.5); NEUT% 61.8 % (42.2-75.2); PLT 261 X1000 (130-400); RBC 4.29 XMIL (4.7-6.1); RDW 16.8 % (11.5-14.5); WBC 7.95 X1000 (4.8-10.8)
[2018-06-28 07:09] LABS: AGAP 12; ALB/GLOB RATIO 0.7; ALBUMIN 2.5 g/dL (3.5-5.0); ALKALINE PHOSPHATASE 102 U/L (32-122); BUN 11 mg/dL (8-22); CALCIUM 7.9 mg/dL (8.8-10.2); CHLORIDE 98 mmol/L (98-107); COSMO 281; CREATININE 0.8 mg/dL (0.7-1.2); ESTIMATED GFR > 60; GLUCOSE 163 mg/dL (70-104); POTASSIUM 3.3 mmol/L (3.5-5.1); SODIUM 139 mmol/L (136-145); TCO2 29 mmol/L (25-35); TOTAL BILIRUBIN 0.21 mg/dL (0.20-1.00)
--- NOTE | 2018-06-28 07:19 | Diag Imaging Result Doc PS360 ---
EXAM: CHEST-1 VIEW 06/28/2018 HISTORY: SOB TECHNIQUE: AP portable at 0548 COMMENT: There is an endotracheal tube with its tip slightly below the thoracic inlet. There is an NG tube which passes below the diaphragm. There is what appears to be a pH probe catheter, the tip of which is not clearly visible but is at least at the esophagogastric junction. The lungs are slightly better expanded than on the previous study of 06/27/2018 and the right base is clearer. There is still some degree of subsegmental atelectasis in both lung bases. IMPRESSION: Improved bibasilar atelectasis. Electronically signed by Randy Higginbotham 06/28/2018 7:16 AM
[2018-06-28 07:25] LABS: GOT 82 U/L (10-34); GPT 22 U/L (10-44)
[2018-06-28] MEDS: HUMALOG SUBQ SCH ×4 (07:54→17:30)
[2018-06-28] MEDS: LEVAQUIN 500 MG/D5W 500 MG/100 ML IVPB IV SCH ×2 (07:54→09:14)
[2018-06-28] MEDS: ASPIRIN EC PO SCH ×2 (07:55→09:13)
[2018-06-28] MEDS: LIPITOR PO SCH ×2 (07:55→09:14)
[2018-06-28] MEDS: MYSOLINE PO SCH ×3 (07:55→20:37)
[2018-06-28] MEDS: ZETIA PO SCH ×2 (07:55→09:15)
[2018-06-28] MEDS: REQUIP PO SCH ×6 (07:56→20:37)
[2018-06-28] MEDS: LOPRESSOR PO SCH ×3 (07:56→20:37)
[2018-06-28] MEDS: SINGULAIR PO SCH ×2 (07:56→09:15)
[2018-06-28] MEDS: BUSPAR PO SCH ×3 (07:56→20:37)
[2018-06-28] MEDS: ABILIFY PO SCH ×2 (07:57→09:13)
[2018-06-28] MEDS: BASAGLAR SUBQ SCH ×2 (07:57→09:13)
[2018-06-28] MEDS: COZAAR PO SCH ×2 (07:57→09:14)
[2018-06-28] MEDS ORDERED: LOVENOX SUBQ ONE (08:50)
[2018-06-28] MEDS ORDERED: MUCINEX PO SCH (09:00)
--- NOTE | 2018-06-28 09:20 | PROGRESS NOTE ---
DATE: 06/28/2018 SUBJECTIVE: He had another episode last night where it just seems like he was having trouble moving air. Wonder about possible mucous plugging. He is breathing comfortably now. Still intubated. OBJECTIVE: VITAL SIGNS: Temperature 98.6 degrees, pulse 70, respirations 20, blood pressure 151/70. HEENT: Pupils are equal round. Lungs: Clear in all lung alvarado. Cardiovascular: Regular rhythm and rate without murmur or S3. Abdomen: Soft. Skin: Is warm and dry. Genitourinary: Urine output is 1200 mL. IMAGING: Chest x-ray. Improved bibasilar atelectasis. ASSESSMENT AND PLAN: 1. Continue try and pursue toward weaning him off the ventilator. We suspect he is going through some alcohol withdrawals and delirium tremens. 2. History of seizures. On levetiracetam 1000 mg q.12, fosphenytoin 200 mg IV q.12 hours. 3. Diabetes mellitus type 2. Continue follow sugars. 4. Major depression in the past. 5. Transaminitis. He had a hepatitis. 6. Coronary artery disease aware. LABORATORY DATA: This morning white count 7950, hematocrit is 36, platelet count 261,000. Sodium 139, potassium 3.3, chloride 98, BUN 11, creatinine 0.8, blood sugars 133, 150, 163, 163. PLAN: We will continue present treatment.. cc: Migue Salas MD
[2018-06-28] MEDS: PRECEDEX 200 MICROGM in NS 48 ML IV SCH ×2 (09:45→11:17)
[2018-06-28] MEDS: ROBITUSSIN PO SCH ×4 (10:37→20:58)
[2018-06-28] MEDS: KEPPRA 1,000 MG in NS 100 ML IV SCH ×2 (11:18→21:33)
[2018-06-28] MEDS: TYLENOL PO PRN (12:34)
--- NOTE | 2018-06-28 14:43 | Diag Imaging Result Doc PS360 ---
EXAM: CT HEAD W/O CONTRAST 06/28/2018 HISTORY: AMS TECHNIQUE: This exam was performed using automated exposure control, adjustment of mA or kV according to patient size, and/or use of iterative reconstruction technique. COMMENT: The current examination is compared with the previous study of 06/20/2018. There is an NG tube on the left side. There is mucosal thickening throughout much of the ethmoid air cells as well as portions of the frontal sinuses, the maxillary sinuses and both sphenoid sinuses. These findings were not present at the time the previous study. There is no evidence of intracranial mass effect, bleed or abnormal extra-axial fluid collection. The calvarium is intact. IMPRESSION: Sinusitis. No evidence of acute intracranial disease. Electronically signed by Randy Higginbotham 06/28/2018 2:41 PM
[2018-06-28] MEDS: VANCOMYCIN 2 GM in NS 500 ML IV SCH (15:48)
[2018-06-28] MEDS ORDERED: LASIX IV ONE (16:10)
[2018-06-28] MEDS: NON-FORMULARY MED (Brexpiprazole [Rexulti] 0 MG) PO SCH (21:32)
[2018-06-29] MEDS: CEREBYX 200 MG in NS 50 ML IV SCH ×2 (00:51→13:46)
[2018-06-29] MEDS: LIORESAL PO SCH ×3 (00:51→16:55)
[2018-06-29] MEDS: TYLENOL PO PRN (00:59)
[2018-06-29] MEDS: VANCOMYCIN 2 GM in NS 500 ML IV SCH ×2 (02:46→14:32)
[2018-06-29] MEDS: ROBITUSSIN PO SCH ×4 (02:46→23:03)
[2018-06-29] MEDS: DUONEB (A & A) INH PRN ×4 (03:37→21:40)
[2018-06-29] MEDS: PROTONIX IV SCH (04:57)
[2018-06-29 05:01] LABS: ALLEN TEST YES; BE 4.2 mmoll (-3.0-3.0); BLOOD TYPE ARTERIAL; METHB 0.7 % (0.0-1.5); O2(CT) 18.7 mL/dL (15.0-23.0); O2HB 90.1 % (95.0-99.0); PCO2(98.6) 47 mmHg (35-45); PO2(98.6) 60 mmHg (60-100); SAMPLE BLOOD; SRATE 16 BPM; THB 14.8 g/dL (11.5-17.4); TVOL 550 mL; pH(98.6) 7.41 (7.35-7.45)
[2018-06-29 05:05] LABS: MODALITY VENTILATOR
[2018-06-29] MEDS: HUMULIN R SUBQ SCH ×5 (05:48→22:31)
[2018-06-29 06:27] LABS: BASO# 0.02 X1000 (0.0-0.2); BASO% 0.2 % (0.0-0.8); EOS# 0.38 X1000 (0.0-0.7); EOS% 3.3 % (0.0-10.0); HEMATOCRIT 37.1 % (42.0-52.0); HEMOGLOBIN 11.5 g/dL (14.0-18.0); IMM GRAN# 0.09 X1000 (0.0-0.04); IMM GRAN% 0.8 % (0.0-0.5); LYMPH# 1.85 X1000 (1.2-3.4); LYMPH% 16.3 % (20.5-51.1); MCH 25.9 PG (27-31); MCV 83.6 FL (81-99); MONO# 1.25 X1000 (0.11-0.59); MPV 12.4 FL (7.4-10.4); NEUT# 7.76 X1000 (1.4-6.5); NEUT% 68.4 % (42.2-75.2); PLT 261 X1000 (130-400); RBC 4.44 XMIL (4.7-6.1); RDW 16.5 % (11.5-14.5); WBC 11.35 X1000 (4.8-10.8)
[2018-06-29] MEDS: DIPRIVAN 1% 1,000 MG/100 ML BOTTLE IV SCH ×5 (06:27→20:46)
--- NOTE | 2018-06-29 06:58 | PROGRESS NOTE ---
DATE: 06/29/2018 SUBJECTIVE: Mr. Wynn had a pretty uneventful night. Appears to be more comfortable. They have been able to cut down on sedation a little bit. OBJECTIVE: Vital Signs: Temperature 99.7 degrees, pulse 84, respirations 20, blood pressure 122/66. Lungs: Clear in all lung alvarado. Cardiovascular: Regular rhythm and rate without murmur or S3. Abdomen: Soft. Skin: Warm and dry. ASSESSMENT AND PLAN: 1. Continue to try to pursue toward weaning per Pulmonary. Suspect he had gone through some alcohol withdrawals and possibly delirium tremens. 2. History of seizures, on levetiracetam 1000 mg q.12 h. and fosphenytoin 200 mg IV q.12 h. and no further seizures witnessed. 3. Diabetes mellitus type 2. 4. Major depression. 5. Transaminitis and hepatitis. 6. Coronary artery disease. Liver functions have improved. AST is 82 yesterday and ALT was 22. Kidney function good with creatinine 0.8, sodium 139, potassium 3.3, chloride 99, BUN 11. Blood sugars 189, 147, 141, 174. I do not see any change in his current orders and medication. cc: Migue Salas MD
--- NOTE | 2018-06-29 07:34 | Diag Imaging Result Doc PS360 ---
EXAM: CHEST-1 VIEW 06/29/2018 HISTORY: SOB TECHNIQUE: AP portable at 0528 COMMENT: There is an endotracheal tube with its tip at thoracic inlet and an NG tube passing below the diaphragm. The inspiration is slightly less optimal than on the previous study of 06/28/2018. The left PICC line has looped into the internal jugular vein on the left and the tip is slightly withdrawn into the innominate vein. Otherwise, compared to the previous study of 06/28/2018 there has been no significant change. IMPRESSION: Change in position of left PICC line. Otherwise unchanged since previous study. Electronically signed by Randy Higginbotham 06/29/2018 7:32 AM
[2018-06-29] MEDS: HUMALOG SUBQ SCH ×3 (08:05→16:55)
[2018-06-29] MEDS: ZETIA PO SCH (08:08)
[2018-06-29] MEDS: LEVAQUIN 500 MG/D5W 500 MG/100 ML IVPB IV SCH (08:08)
[2018-06-29] MEDS: LIPITOR PO SCH (08:08)
[2018-06-29] MEDS: MYSOLINE PO SCH ×2 (08:09→22:30)
[2018-06-29] MEDS: BUSPAR PO SCH ×2 (08:09→22:28)
[2018-06-29] MEDS: COZAAR PO SCH (08:10)
[2018-06-29] MEDS: REQUIP PO SCH ×4 (08:10→22:28)
[2018-06-29] MEDS: SINGULAIR PO SCH (08:10)
[2018-06-29] MEDS: ABILIFY PO SCH (08:11)
[2018-06-29] MEDS: BASAGLAR SUBQ SCH (08:11)
[2018-06-29] MEDS: ASPIRIN EC PO SCH (08:11)
[2018-06-29] MEDS: LOPRESSOR PO SCH ×2 (08:12→22:28)
[2018-06-29 09:06] LABS: AGAP 11; ALB/GLOB RATIO 0.8; ALBUMIN 2.8 g/dL (3.5-5.0); ALKALINE PHOSPHATASE 103 U/L (32-122); BUN 11 mg/dL (8-22); CHLORIDE 102 mmol/L (98-107); COSMO 283; CREATININE 0.7 mg/dL (0.7-1.2); ESTIMATED GFR > 60; GLUCOSE 175 mg/dL (70-104); GOT 79 U/L (10-34); GPT 40 U/L (10-44); POTASSIUM 3.4 mmol/L (3.5-5.1); SODIUM 140 mmol/L (136-145); TCO2 27 mmol/L (25-35); TOTAL BILIRUBIN 0.31 mg/dL (0.20-1.00); TOTAL PROTEIN 6.2 g/dL (6.3-8.3)
[2018-06-29] MEDS: KEPPRA 1,000 MG in NS 100 ML IV SCH ×2 (09:18→22:29)
[2018-06-29] MEDS: HALDOL IV PRN (10:43)
[2018-06-29] MEDS: ATIVAN IV PRN (15:24)
[2018-06-29] MEDS: NON-FORMULARY MED (Brexpiprazole [Rexulti] 0 MG) PO SCH (23:03)
[2018-06-30] MEDS: DIPRIVAN 1% 1,000 MG/100 ML BOTTLE IV SCH ×4 (00:32→08:54)
[2018-06-30] MEDS: CEREBYX 200 MG in NS 50 ML IV SCH ×2 (01:19→14:40)
[2018-06-30] MEDS: LIORESAL PO SCH ×3 (01:23→16:18)
[2018-06-30] MEDS: ROBITUSSIN PO SCH ×4 (02:24→20:14)
[2018-06-30] MEDS: VANCOMYCIN 2 GM in NS 500 ML IV SCH ×2 (03:18→20:33)
[2018-06-30] MEDS: DUONEB (A & A) INH PRN ×4 (03:55→20:59)
[2018-06-30 04:41] LABS: ALLEN TEST YES; BE 3.9 mmoll (-3.0-3.0); BLOOD TYPE ARTERIAL; HCO3-(ACT) 27.9 mmoll (20.0-26.0); O2(CT) 14.7 mL/dL (15.0-23.0); O2HB 92.9 % (95.0-99.0); PCO2(98.6) 49 mmHg (35-45); PO2(98.6) 70 mmHg (60-100); SAMPLE BLOOD; SAO2 95.2 % (95.0-100.0); SRATE 16 BPM; THB 11.2 g/dL (11.5-17.4); TVOL 550 mL; pH(98.6) 7.39 (7.35-7.45)
[2018-06-30 04:42] LABS: MODALITY VENTILATOR
[2018-06-30] MEDS: PROTONIX IV SCH (04:59)
[2018-06-30] MEDS: HUMULIN R SUBQ SCH ×5 (05:57→20:41)
[2018-06-30 06:43] LABS: BASO# 0.01 X1000 (0.0-0.2); BASO% 0.1 % (0.0-0.8); EOS# 0.34 X1000 (0.0-0.7); EOS% 4.3 % (0.0-10.0); HEMATOCRIT 31.5 % (42.0-52.0); HEMOGLOBIN 9.8 g/dL (14.0-18.0); IMM GRAN# 0.07 X1000 (0.0-0.04); IMM GRAN% 0.9 % (0.0-0.5); LYMPH# 1.49 X1000 (1.2-3.4); LYMPH% 18.6 % (20.5-51.1); MCH 26.6 PG (27-31); MCHC 31.1 g/dL (33-37); MCV 85.6 FL (81-99); MONO# 0.84 X1000 (0.11-0.59); MONO% 10.5 % (1.7-9.3); MPV 12.8 FL (7.4-10.4); NEUT# 5.24 X1000 (1.4-6.5); NEUT% 65.6 % (42.2-75.2); PLT 237 X1000 (130-400); RBC 3.68 XMIL (4.7-6.1); RDW 16.2 % (11.5-14.5); WBC 7.99 X1000 (4.8-10.8)
--- NOTE | 2018-06-30 06:56 | Diag Imaging Result Doc PS360 ---
EXAM: CHEST-1 VIEW HISTORY: SOB TECHNIQUE: Portable chest single view COMPARISON: 06/29/2018 FINDINGS: No change in the endotracheal tube or nasogastric tube. The lungs are well expanded. No cardiomegaly. Mild vascular prominence. No pleural effusions identified. The left-sided PICC line has a loop apparently in the left jugular vein. The tip of the PICC line does not enter the superior vena cava. IMPRESSION: No improvement in the positioning of the left-sided PICC line. No other interval change. Electronically signed by Kiko Hewitt 06/30/2018 6:54 AM
[2018-06-30 07:34] LABS: AGAP 7; ALB/GLOB RATIO 0.7; ALBUMIN 1.9 g/dL (3.5-5.0); ALKALINE PHOSPHATASE 74 U/L (32-122); BUN 10 mg/dL (8-22); CHLORIDE 105 mmol/L (98-107); COSMO 273; CREATININE 0.5 mg/dL (0.7-1.2); ESTIMATED GFR > 60; GLUCOSE 138 mg/dL (70-104); SODIUM 136 mmol/L (136-145); TCO2 24 mmol/L (25-35); TOTAL BILIRUBIN 0.22 mg/dL (0.20-1.00); TOTAL PROTEIN 4.8 g/dL (6.3-8.3)
[2018-06-30 07:54] LABS: CALCIUM 6.9 mg/dL (8.8-10.2)
[2018-06-30 08:13] LABS: GOT 40 U/L (10-34); GPT 21 U/L (10-44)
--- NOTE | 2018-06-30 08:41 | PROVIDER PROGRESS NOTE ---
Assessment/Plan - Problem List Patient Problems: All Active Problems (Updated 06/30/18 @ 08:39 by Azam Li MD) Chest pain (Acute) Seizure (Acute) Hyperglycemia (Acute) Respiratory failure (Acute) - Assessment Assessment: Please see written note for details. Neuro status and airway protection is the limitation to progress in vent weaning. I.e. Progress will depend on regaining alertness on sedation vacation.
[2018-06-30] MEDS: HUMALOG SUBQ SCH ×3 (08:45→16:12)
[2018-06-30] MEDS: MYSOLINE PO SCH ×2 (08:46→20:15)
[2018-06-30] MEDS: LEVAQUIN 500 MG/D5W 500 MG/100 ML IVPB IV SCH (08:47)
[2018-06-30] MEDS: BUSPAR PO SCH ×2 (08:48→20:16)
[2018-06-30] MEDS: LOPRESSOR PO SCH ×2 (08:48→20:16)
[2018-06-30] MEDS: COZAAR PO SCH (08:48)
[2018-06-30] MEDS: ZETIA PO SCH (08:48)
[2018-06-30] MEDS: ASPIRIN PO SCH (08:48)
[2018-06-30] MEDS: ABILIFY PO SCH (08:48)
[2018-06-30] MEDS: BASAGLAR SUBQ SCH (08:49)
[2018-06-30] MEDS: SINGULAIR PO SCH (08:49)
[2018-06-30] MEDS: REQUIP PO SCH ×4 (08:49→20:15)
[2018-06-30] MEDS: LIPITOR PO SCH (08:49)
[2018-06-30] MEDS ORDERED: CALCIUM GLUCONATE 1 GM in NS 50 ML IV ONE (09:00)
[2018-06-30] MEDS: KEPPRA 1,000 MG in NS 100 ML IV SCH ×2 (10:05→21:38)
[2018-06-30] MEDS ORDERED: LASIX IV ONE (10:26)
[2018-06-30] MEDS: HALDOL IV PRN ×3 (10:50→23:05)
[2018-06-30] MEDS: SOLU-MEDROL IV SCH ×3 (11:18→21:38)
[2018-06-30] MEDS: PHENOBARBITAL IV PRN ×2 (11:19→18:21)
--- NOTE | 2018-06-30 11:54 | PROGRESS NOTE ---
DATE: 06/30/2018 SUBJECTIVE: Mr. Wynn is still intubated. He seems to be more comfortable breathing air, moving air easy. OBJECTIVE: On exam, he is afebrile, temperature 97.5 degrees, pulse 69, respirations 17, blood pressure 123/74. Pupils are equal round. Lungs are clear in all lung alvarado anterior and lateral.Cardiovascular: Regular rhythm and rate without murmur or S3. Abdomen is soft. Skin is warm and dry. URINE OUTPUT: 1600 mL. DIAGNOSTIC STUDIES: Blood sugar 169, 159, 159. His chest x-ray this morning: No improvement. Position of left-sided PICC line. No other interval change. Endotracheal tube and nasogastric tube in good place. No cardiomegaly. ASSESSMENT AND PLAN: 1. Continue to try and pursue weaning. We suspect possible alcohol withdrawals should be completed including delirium tremens. 2. History of seizures. On levetiracetam 1000 g IV q.12 h. and fosphenytoin 200 mg IV q.12 h. We continue that. 3. Diabetes mellitus, type 2. Continue to follow sugars. 4. Blood pressure is doing better and most recent blood pressures range between 96 to 135 over 52 to 92. 5. History of major depression. 6. History of transaminitis and suspect steatohepatitis. His liver enzymes seem to have come down. 7. History of coronary artery disease. Continue present management, working toward trying to wean him off the ventilator. cc: Migue Salas MD MTDD
[2018-06-30] MEDS: GEODON IM PRN ×2 (11:55→23:41)
[2018-06-30] MEDS: STERILE WATER INJ. INJ PRN ×2 (11:55→23:41)
[2018-06-30] MEDS ORDERED: NS 250 ML ONE (12:30)
--- NOTE | 2018-06-30 14:14 | Diag Imaging Result Doc PS360 ---
EXAM: CHEST-PORTABLE HISTORY: Verify PICC placement TECHNIQUE: Portable supine chest single view COMPARISON: 5:21 AM FINDINGS: The left-sided PICC line has been repositioned since the prior exam. The tip is now near the junction of the superior vena cava and right atrium. The endotracheal tube has been removed. No other interval change. IMPRESSION: PICC line in good position. Electronically signed by Kiko Hewitt 06/30/2018 2:11 PM
[2018-06-30] MEDS: NON-FORMULARY MED (Brexpiprazole [Rexulti] 0 MG) PO SCH (20:14)
[2018-07-01] MEDS: LIORESAL PO SCH ×3 (01:05→16:15)
[2018-07-01] MEDS: CEREBYX 200 MG in NS 50 ML IV SCH ×2 (01:18→12:03)
[2018-07-01] MEDS: ROBITUSSIN PO SCH ×4 (02:16→20:31)
[2018-07-01] MEDS ORDERED: APRESOLINE IV PRN (03:35)
[2018-07-01] MEDS: SOLU-MEDROL IV SCH ×4 (04:06→23:24)
[2018-07-01] MEDS: PROTONIX IV SCH (04:15)
[2018-07-01] MEDS: SODIUM CHLORIDE 0.9% INJ SCH (04:15)
[2018-07-01 05:09] LABS: ALLEN TEST YES; BE 2.3 mmoll (-3.0-3.0); BLOOD TYPE ARTERIAL; HCO3-(ACT) 26.7 mmoll (20.0-26.0); O2(CT) 17.6 mL/dL (15.0-23.0); O2HB 96.8 % (95.0-99.0); PCO2(98.6) 32 mmHg (35-45); PO2(98.6) 161 mmHg (60-100); SAMPLE BLOOD; SAO2 99.1 % (95.0-100.0); THB 12.7 g/dL (11.5-17.4)
[2018-07-01 05:10] LABS: MODALITY BI PAP
[2018-07-01 05:25] LABS: BASO# 0.02 X1000 (0.0-0.2); BASO% 0.2 % (0.0-0.8); EOS# 0.05 X1000 (0.0-0.7); EOS% 0.4 % (0.0-10.0); HEMOGLOBIN 12.6 g/dL (14.0-18.0); IMM GRAN# 0.16 X1000 (0.0-0.04); IMM GRAN% 1.2 % (0.0-0.5); LYMPH# 1.92 X1000 (1.2-3.4); LYMPH% 14.7 % (20.5-51.1); MCH 26.1 PG (27-31); MCHC 31.5 g/dL (33-37); MCV 82.8 FL (81-99); MONO% 6.1 % (1.7-9.3); MPV 11.6 FL (7.4-10.4); NEUT# 10.08 X1000 (1.4-6.5); NEUT% 77.4 % (42.2-75.2); PLT 338 X1000 (130-400); RBC 4.83 XMIL (4.7-6.1); RDW 15.9 % (11.5-14.5); WBC 13.03 X1000 (4.8-10.8)
[2018-07-01] MEDS: HUMULIN R SUBQ SCH ×4 (06:25→20:32)
--- NOTE | 2018-07-01 07:40 | Diag Imaging Result Doc PS360 ---
CHEST-1 VIEW - 07/01/2018 INDICATION: SOB COMPARISON: 06/30/2018 FINDINGS: Support lines and tubes are stable. The lungs are clear. Heart size is normal. No pneumothorax or pleural effusion. IMPRESSION: No acute disease. Electronically signed by Rene Medellin 07/01/2018 7:37 AM
[2018-07-01] MEDS: HUMALOG SUBQ SCH ×3 (08:02→17:17)
[2018-07-01] MEDS: MYSOLINE PO SCH ×2 (08:03→20:31)
[2018-07-01] MEDS: BUSPAR PO SCH ×2 (08:03→20:31)
[2018-07-01] MEDS: LOPRESSOR PO SCH ×2 (08:03→20:40)
[2018-07-01] MEDS: COZAAR PO SCH (08:03)
[2018-07-01] MEDS: ASPIRIN PO SCH (08:03)
[2018-07-01] MEDS: ABILIFY PO SCH (08:04)
[2018-07-01] MEDS: LEVAQUIN 500 MG/D5W 500 MG/100 ML IVPB IV SCH (08:04)
[2018-07-01] MEDS: REQUIP PO SCH ×4 (08:04→20:31)
[2018-07-01] MEDS: SINGULAIR PO SCH (08:04)
[2018-07-01] MEDS: ZETIA PO SCH (08:04)
[2018-07-01] MEDS: LIPITOR PO SCH (08:04)
[2018-07-01] MEDS: BASAGLAR SUBQ SCH (08:06)
[2018-07-01] MEDS ORDERED: LASIX IV ONE (08:06)
--- NOTE | 2018-07-01 08:34 | PROGRESS NOTE ---
DATE: 07/01/2018 SUBJECTIVE: This patient is a little bit lethargic, but arousable. He is following commands. He is not oriented to person. He is able to say part of his date of . He is not able to say the year. He was able to drink liquid and get some ice chips without any problem. He has been extubated recently, I believe yesterday. I have ordered physical therapy evaluation for range of motion. OBJECTIVE: Vital Signs: Temperature 98.2 degrees, pulse 94, respiratory rate 12, blood pressure 170/90, oxygen saturation 100% on 3 L of nasal cannula. HEENT: Head normocephalic, no trauma. PERRLA. Neck: Supple. No JVD. No masses. Central trachea. Chest: Decreased breath sounds at the bases with some crepitus as well. Abdomen: Soft, protuberant, nontender, nondistended. No hepatosplenomegaly. Extremities: There is 2+ to 3+ pedal edema. No clubbing. No cyanosis. Neurological examination: The patient is lethargic, but arousable. He is following commands, but he is disoriented. He is not oriented to person, time or place. He is able to say part of his date of . He knows his month, day, but he does not know the year. He is still on physical restraints because he probably will try to pull out the tubes and lines. I will start some physical therapy on this patient. LABORATORY: WBC 13, hemoglobin 12.6, hematocrit 40, platelets 338. Pending BMP. ASSESSMENT AND PLAN: 1. Altered mental status associated with agitation, no focal neurological deficits. CT scan of the head did not show any evidence of acute intracranial pathology. Neurology Department has been consulted. Probably this patient has been having alcohol withdrawal and DTs. He has history of seizure disorder. We will continue monitoring this patient, Neurology Department on board. 2. History of seizure disorder, continue with same management. Neurology on board. 3. Uncontrolled type 2 diabetes. His hemoglobin A1c was elevated at 13.3. Blood sugar is under control now. He has been on insulin glargine and also sliding scale insulin. 4. Hypertension. Continue with same treatment. His blood pressure is a little bit elevated, but we need to give him his treatment as scheduled. 5. History of major depressive disorder, aware. Continue with his medications. 6. Transaminitis, likely secondary to fatty liver, possible alcohol abuse as well. This may represent alcoholic hepatitis. His hepatitis panel is negative. 7. Atypical chest pain. We did a stress test on this patient that did not show any acute abnormality, cardiac-velarde did not seem to be stable. Echocardiogram showed an ejection fraction of 65%. 8. History of chronic obstructive pulmonary disease/sleep apnea. Aware. 9. History of coronary artery disease. No chest pain at this moment. 10. Acute hypoxemic and hypercapnic respiratory failure, status post extubation yesterday. 11. Nutritional status: This patient has been getting nutrition through the NG tube. I will ask for a swallow evaluation today. He seems to be drinking and doing well with the ice chips as well. CRITICAL CARE TIME: 40 minutes. cc: Bienvenido Montemayor MD
[2018-07-01] MEDS ORDERED: HALDOL IV PRN (09:11)
[2018-07-01] MEDS ORDERED: GEODON IM PRN (09:13)
[2018-07-01 09:23] LABS: AGAP 14; ALBUMIN 3.3 g/dL (3.5-5.0); ALKALINE PHOSPHATASE 95 U/L (32-122); BUN 11 mg/dL (8-22); CHLORIDE 102 mmol/L (98-107); COSMO 288; CREATININE 0.7 mg/dL (0.7-1.2); ESTIMATED GFR > 60; GLUCOSE 228 mg/dL (70-104); GOT 53 U/L (10-34); GPT 36 U/L (10-44); POTASSIUM 3.9 mmol/L (3.5-5.1); SODIUM 141 mmol/L (136-145); TCO2 25 mmol/L (25-35); TOTAL PROTEIN 6.7 g/dL (6.3-8.3)
[2018-07-01] MEDS: DUONEB (A & A) INH PRN ×2 (09:30→16:00)
[2018-07-01] MEDS: KEPPRA 1,000 MG in NS 100 ML IV SCH ×2 (10:06→21:14)
--- NOTE | 2018-07-01 11:25 | PROGRESS NOTE ---
DATE: 07/01/2018 SUBJECTIVE: Mr. Wynn has been gradually improving. OBJECTIVE: Neurologic: This morning, he is awake and alert, much more spontaneous, calling out as I left the bedside. Speech is dysarthric, but much stronger and much easier to understand than when I last saw him. ASSESSMENT AND PLAN: I do not have any new thoughts or new suggestion today from Neurology standpoint. He has had global encephalopathy, which appears to be resolving. Features have been consistent with alcohol withdrawal. There is no evidence of new brain lesion. There is reported baseline seizure history. He has not had clinically recognized seizure in many days. Thanks for asking Neurology to see Mr. Wynn. cc: MD RENETTA Baker III
[2018-07-01] MEDS: VANCOMYCIN 2 GM in NS 500 ML IV SCH (14:45)
[2018-07-01] MEDS: NON-FORMULARY MED (Brexpiprazole [Rexulti] 0 MG) PO SCH (20:31)
[2018-07-02] MEDS: LIORESAL PO SCH ×3 (00:15→16:29)
[2018-07-02] MEDS: CEREBYX 200 MG in NS 50 ML IV SCH ×2 (00:15→13:24)
[2018-07-02] MEDS: PROTONIX IV SCH (04:19)
[2018-07-02] MEDS: ROBITUSSIN PO SCH ×4 (04:20→20:22)
[2018-07-02 05:57] LABS: ALLEN TEST YES; BE 4.7 mmoll (-3.0-3.0); BLOOD TYPE ARTERIAL; HCO3-(ACT) 28.6 mmoll (20.0-26.0); METHB 0.8 % (0.0-1.5); O2(CT) 16.6 mL/dL (15.0-23.0); PCO2(98.6) 37 mmHg (35-45); PO2(98.6) 141 mmHg (60-100); SAMPLE BLOOD; pH(98.6) 7.49 (7.35-7.45)
[2018-07-02 05:58] LABS: MODALITY CANNULA
[2018-07-02 06:03] LABS: BASO# 0.02 X1000 (0.0-0.2); BASO% 0.2 % (0.0-0.8); EOS# 0.07 X1000 (0.0-0.7); EOS% 0.6 % (0.0-10.0); HEMOGLOBIN 11.7 g/dL (14.0-18.0); IMM GRAN# 0.07 X1000 (0.0-0.04); IMM GRAN% 0.6 % (0.0-0.5); LYMPH# 2.01 X1000 (1.2-3.4); MCH 25.7 PG (27-31); MCHC 30.8 g/dL (33-37); MCV 83.3 FL (81-99); MONO# 0.74 X1000 (0.11-0.59); MONO% 6.2 % (1.7-9.3); MPV 11.7 FL (7.4-10.4); NEUT# 8.94 X1000 (1.4-6.5); NEUT% 75.4 % (42.2-75.2); PLT 357 X1000 (130-400); RBC 4.56 XMIL (4.7-6.1); RDW 16.2 % (11.5-14.5); WBC 11.85 X1000 (4.8-10.8)
[2018-07-02] MEDS: HUMULIN R SUBQ SCH ×4 (06:14→20:12)
[2018-07-02 06:41] LABS: AGAP 11; BUN 14 mg/dL (8-22); CALCIUM 8.8 mg/dL (8.8-10.2); CHLORIDE 97 mmol/L (98-107); COSMO 281; CREATININE 0.7 mg/dL (0.7-1.2); ESTIMATED GFR > 60; GLUCOSE 228 mg/dL (70-104); POTASSIUM 3.8 mmol/L (3.5-5.1); SODIUM 137 mmol/L (136-145); TCO2 29 mmol/L (25-35)
[2018-07-02] MEDS ORDERED: GEODON IM PRN (07:22)
--- NOTE | 2018-07-02 07:24 | Diag Imaging Result Doc PS360 ---
EXAM: CHEST-1 VIEW 07/02/2018 HISTORY: SOB TECHNIQUE: AP portable at 0525 COMMENT: There is no evidence of acute cardiac or pulmonary disease. Compared to 07/01/2018 there has been no significant change. IMPRESSION: Stable chest. Electronically signed by Randy Higginbotham 07/02/2018 7:21 AM
[2018-07-02] MEDS ORDERED: LASIX IV ONE (07:34)
[2018-07-02] MEDS ORDERED: INSULIN PEN NEEDLES ONE (08:41)
[2018-07-02] MEDS: SOLU-MEDROL IV SCH ×2 (08:46→20:12)
[2018-07-02] MEDS: LACTULOSE PO SCH ×3 (08:46→20:16)
[2018-07-02] MEDS: ZETIA PO SCH (08:47)
[2018-07-02] MEDS: BASAGLAR SUBQ SCH (08:47)
[2018-07-02] MEDS: HUMALOG SUBQ SCH ×3 (08:47→16:32)
[2018-07-02] MEDS: MYSOLINE PO SCH ×2 (08:47→20:10)
[2018-07-02] MEDS: REQUIP PO SCH ×5 (08:47→20:14)
[2018-07-02] MEDS: LOPRESSOR PO SCH ×2 (08:48→20:14)
[2018-07-02] MEDS: COZAAR PO SCH (08:48)
[2018-07-02] MEDS: SINGULAIR PO SCH (08:48)
[2018-07-02] MEDS: LEVAQUIN 500 MG/D5W 500 MG/100 ML IVPB IV SCH (08:48)
[2018-07-02] MEDS: BUSPAR PO SCH ×2 (08:48→20:13)
[2018-07-02] MEDS: ASPIRIN PO SCH (08:48)
[2018-07-02] MEDS: ABILIFY PO SCH (08:48)
[2018-07-02] MEDS: LIPITOR PO SCH (08:48)
[2018-07-02] MEDS: DULCOLAX PR SCH (08:48)
[2018-07-02] MEDS: KEPPRA 1,000 MG in NS 100 ML IV SCH ×2 (10:02→21:16)
[2018-07-02] MEDS: VANCOMYCIN 2 GM in NS 500 ML IV SCH (10:22)
--- NOTE | 2018-07-02 10:27 | PROGRESS NOTE ---
DATE: 07/02/2018 SUBJECTIVE: This patient is more alert. He is awake today. He is following commands and he was able to answer some of my questions. He is oriented x3 today. He is tolerating p.o. I will remove the White catheter. I will ask for physical therapy and occupational therapy to evaluate this patient. Also, I have decreased the dose of the steroids from 60 IV q.8 hours to 40 IV q.12 hours. OBJECTIVE: Vital Signs: Temperature 99 degrees, pulse 76, respiratory rate 16, blood pressure 139/85, oxygen saturation 98 on 3 L of nasal cannula. HEENT: Head normocephalic. No trauma. PERRLA. Neck: Supple. No JVD. No masses. Central trachea. Chest: Decreased breath sounds at the bases with some crepitus as well. Abdomen: Soft, protuberant, nontender, nondistended. No hepatosplenomegaly. Extremities: There is 2 to 3+ pedal edema. No clubbing. No cyanosis. Neurological Examination: The patient is alert. He is awake. His answers are slow but he is oriented. He is moving all 4 extremities. Laboratory: WBC 11.8, hemoglobin 11.7, hematocrit 38, platelets 357,000. Sodium 137, potassium 3.8, chloride 97, bicarbonate 29, BUN 14, creatinine 0.7, glucose 228, calcium 8.8. ASSESSMENT AND PLAN: 1. Altered mental status associated with agitation. No focal neurological deficit. This global encephalopathy appears to be resolving. Possible this is related to alcohol withdrawal, even though the patient states that he does not drink that much. As per the patient, he drinks occasionally. His mental status is getting much better. He is oriented today. 2. History of seizure disorder. Continue with the same management. 3. Uncontrolled type 2 diabetes. Hemoglobin A1c was elevated at 13.3. Sugar is better controlled now. We will continue with the same management. 4. Hypertension. Continue with the same treatment. His blood pressure was a little bit elevated but now it is controlled. 5. Transaminitis, likely secondary to fatty liver and possible alcohol abuse as well. 6. Atypical chest pain. We did a stress test on this patient and that did not show any acute abnormality. Cardiac-velarde, he seems to be stable. Echocardiogram showed an ejection fraction of 65%. 7. History of chronic obstructive pulmonary disease/sleep apnea. Aware. 8. History of coronary artery disease. No chest pain at this moment, but upon admission. 9. History of hypoxemic and hypercapnic respiratory failure, status post extubation 2 days ago. 10. Nutritional status. This patient has been getting nutrition through the nasogastric tube, which had been stopped yesterday. A swallow evaluation checked on this patient yesterday and he seems to be tolerating oral intake. We will continue with a mechanical soft diet. CRITICAL CARE TIME: 35 minutes. cc: Bienvenido Montemayor MD
--- NOTE | 2018-07-02 11:47 | PROGRESS NOTE ---
DATE: 07/02/2018 Mr. Wynn is sitting up, awake, alert, attentive. He reports first seizure was approximately 5 years ago. He is not certain about his earlier seizure medication management but he has been taking levetiracetam for several years. He reports no seizures when taking medicine but he has had some seizures when missing doses, last about 6 months before this admission. In light of this history, I think we should continue levetiracetam at current dose 1000 mg q.12 hours and this can be switched to p.o. I encouraged him to try to take his seizure medicines as directed. No other suggestion from neurology standpoint today. Thanks for asking us to see Mr. Wynn. cc: Tonny Franco III, MD
[2018-07-02] MEDS: ZOFRAN IV PRN (13:19)
[2018-07-02] MEDS: NON-FORMULARY MED (Brexpiprazole [Rexulti] 0 MG) PO SCH (21:00)
[2018-07-03] MEDS: LIORESAL PO SCH ×3 (00:14→16:31)
[2018-07-03] MEDS: CEREBYX 200 MG in NS 50 ML IV SCH (00:14)
[2018-07-03] MEDS: ROBITUSSIN PO SCH ×4 (04:50→22:07)
[2018-07-03] MEDS: VANCOMYCIN 2 GM in NS 500 ML IV SCH ×2 (04:50→22:01)
--- NOTE | 2018-07-03 07:36 | Diag Imaging Result Doc PS360 ---
EXAM: CHEST-1 VIEW 07/03/2018 HISTORY: SOB TECHNIQUE: AP portable at 0601 COMMENT: There is no evidence of acute cardiac or pulmonary disease. Compared to 07/02/2018 there has been no significant change. IMPRESSION: Stable chest. Electronically signed by Randy Higginbotham 07/03/2018 7:34 AM
[2018-07-03] MEDS: HUMULIN R SUBQ SCH ×5 (07:38→22:06)
[2018-07-03] MEDS: DUONEB (A & A) INH PRN (08:00)
[2018-07-03] MEDS: LACTULOSE PO SCH ×2 (08:17→22:10)
[2018-07-03] MEDS: REQUIP PO SCH ×5 (08:18→22:09)
[2018-07-03] MEDS: ASPIRIN PO SCH (08:18)
[2018-07-03] MEDS: MYSOLINE PO SCH ×2 (08:18→22:09)
[2018-07-03] MEDS: COZAAR PO SCH (08:18)
[2018-07-03] MEDS: SINGULAIR PO SCH (08:19)
[2018-07-03] MEDS: BUSPAR PO SCH ×2 (08:19→22:09)
[2018-07-03] MEDS: ZETIA PO SCH (08:19)
[2018-07-03] MEDS: LOPRESSOR PO SCH ×2 (08:19→22:10)
[2018-07-03] MEDS: LIPITOR PO SCH (08:19)
[2018-07-03] MEDS: SOLU-MEDROL IV SCH ×2 (08:20→22:10)
[2018-07-03] MEDS: HUMALOG SUBQ SCH ×3 (08:20→18:15)
[2018-07-03] MEDS: PROTONIX IV SCH (08:20)
[2018-07-03] MEDS: DULCOLAX PR SCH (08:22)
[2018-07-03] MEDS ORDERED: INSULIN PEN NEEDLES ONE (08:35)
[2018-07-03] MEDS: LEVAQUIN 500 MG/D5W 500 MG/100 ML IVPB IV SCH (08:50)
[2018-07-03] MEDS: ABILIFY PO SCH (09:11)
[2018-07-03 09:18] LABS: BASO# 0.02 X1000 (0.0-0.2); BASO% 0.2 % (0.0-0.8); EOS# 0.23 X1000 (0.0-0.7); EOS% 2.3 % (0.0-10.0); HEMATOCRIT 37.4 % (42.0-52.0); HEMOGLOBIN 11.4 g/dL (14.0-18.0); IMM GRAN# 0.09 X1000 (0.0-0.04); IMM GRAN% 0.9 % (0.0-0.5); LYMPH# 2.51 X1000 (1.2-3.4); LYMPH% 25.3 % (20.5-51.1); MCH 25.6 PG (27-31); MCHC 30.5 g/dL (33-37); MONO# 0.91 X1000 (0.11-0.59); MONO% 9.2 % (1.7-9.3); MPV 11.4 FL (7.4-10.4); NEUT# 6.16 X1000 (1.4-6.5); NEUT% 62.1 % (42.2-75.2); PLT 384 X1000 (130-400); RBC 4.45 XMIL (4.7-6.1); RDW 16.2 % (11.5-14.5); WBC 9.92 X1000 (4.8-10.8)
[2018-07-03] MEDS: BASAGLAR SUBQ SCH ×2 (09:20→10:15)
[2018-07-03 09:41] LABS: AGAP 12; BUN 15 mg/dL (8-22); CALCIUM 8.2 mg/dL (8.8-10.2); CHLORIDE 98 mmol/L (98-107); COSMO 283; CREATININE 0.8 mg/dL (0.7-1.2); ESTIMATED GFR > 60; GLUCOSE 175 mg/dL (70-104); POTASSIUM 3.2 mmol/L (3.5-5.1); SODIUM 139 mmol/L (136-145); TCO2 29 mmol/L (25-35)
[2018-07-03] MEDS: KEPPRA 1,000 MG in NS 100 ML IV SCH (11:00)
[2018-07-03] MEDS ORDERED: KLOR-CON PO ONE (11:04)
--- NOTE | 2018-07-03 14:25 | PROGRESS NOTE ---
DATE: 07/03/2018 SUBJECTIVE: This patient is more alert, more oriented. He is following commands, and he is answering my questions. He is extremely weak, though, and his answers are slow. I have switched the IV Keppra to p.o. Keppra, same dose and frequency. I will stop the fosphenytoin. I do not think it is necessary at this point. As per the patient, before coming to the hospital, he was taking Percocet 3 times a day and probably this is the cause of his problem. Probably he withdraw from that. As per the patient he does not drink too much. He does that occasionally. OBJECTIVE: Vital Signs: Temperature 97.8 degrees, pulse 59, respiratory rate 22, blood pressure 147/59, oxygen saturation 100% on 3 L of nasal cannula. HEENT: Head normocephalic, no trauma. PERRLA. Neck: Supple. No JVD. No masses. Central trachea. Chest: Decreased breath sounds at the bases with some crepitus as well. Abdomen: Soft, protuberant, nontender, nondistended. No hepatosplenomegaly. Extremities: 2 to 3+ lower extremity edema. No clubbing. No cyanosis. Neurological: The patient is alert and oriented x3. He moves all 4 extremities. He is following commands. LABORATORY: WBC 9.9, hemoglobin 11.4, hematocrit 37.4, platelets 384,000. Sodium 139, potassium 3.2, chloride 98, bicarbonate 29, BUN 15, creatinine 0.8, glucose 175, calcium 8.2. ASSESSMENT AND PLAN: 1. Altered mental status associated with agitation, no focal neurological deficit. This global encephalopathy resolved. Probably related to narcotic withdrawal. As per the patient he is not a drinker, but he was taking Percocet 3 times a day, and he ran out of this medication. 2. History of seizure disorder. Continue with Keppra. I will stop the fosphenytoin. 3. Uncontrolled type 2 diabetes. Hemoglobin A1c was elevated at 13.3. Blood sugar is better controlled. Continue with same management. 4. Hypertension. Continue with same treatment. 5. Transaminitis, likely secondary to alcohol use but looks better now. 6. Atypical chest pain. We did a stress test upon admission that did not show any acute abnormality. Cardiac-velarde, he seems to be stable. Echocardiogram showed an ejection fraction of 65%. 7. History of chronic obstructive pulmonary disease/sleep apnea. Aware. 8. History of coronary artery disease. No chest pain at this moment but upon admission, resolved. 9. History of hypoxemic and hypercapnic respiratory failure status post extubation 3 days ago. Aware. He is doing better. 10. Nutritional status. This patient is tolerating p.o. Continue with same treatment. cc: Bienvenido Montemayor MD
[2018-07-03] MEDS: KEPPRA PO SCH (22:10)
[2018-07-03] MEDS: NON-FORMULARY MED (Brexpiprazole [Rexulti] 0 MG) PO SCH (23:06)
[2018-07-04] MEDS: LIORESAL PO SCH ×2 (01:57→08:52)
[2018-07-04] MEDS: ROBITUSSIN PO SCH ×4 (03:17→22:11)
[2018-07-04] MEDS: HUMULIN R SUBQ SCH ×4 (06:27→22:13)
[2018-07-04 08:08] LABS: BASO# 0.02 X1000 (0.0-0.2); BASO% 0.2 % (0.0-0.8); EOS# 0.19 X1000 (0.0-0.7); EOS% 2.3 % (0.0-10.0); HEMATOCRIT 38.5 % (42.0-52.0); IMM GRAN# 0.04 X1000 (0.0-0.04); IMM GRAN% 0.5 % (0.0-0.5); LYMPH# 2.58 X1000 (1.2-3.4); LYMPH% 30.7 % (20.5-51.1); MCH 25.9 PG (27-31); MCHC 31.2 g/dL (33-37); MONO# 0.72 X1000 (0.11-0.59); MONO% 8.6 % (1.7-9.3); MPV 10.9 FL (7.4-10.4); NEUT# 4.85 X1000 (1.4-6.5); NEUT% 57.7 % (42.2-75.2); PLT 381 X1000 (130-400); RBC 4.64 XMIL (4.7-6.1)
[2018-07-04 08:18] LABS: AGAP 11; ALB/GLOB RATIO 1.1; ALBUMIN 3.6 g/dL (3.5-5.0); ALKALINE PHOSPHATASE 103 U/L (32-122); BUN 15 mg/dL (8-22); CALCIUM 9.2 mg/dL (8.8-10.2); CHLORIDE 99 mmol/L (98-107); COSMO 278; CREATININE 0.8 mg/dL (0.7-1.2); ESTIMATED GFR > 60; GLUCOSE 134 mg/dL (70-104); GOT 187 U/L (10-34); GPT 182 U/L (10-44); PHOSPHORUS 2.6 mg/dL (2.7-4.5); POTASSIUM 3.5 mmol/L (3.5-5.1); SODIUM 138 mmol/L (136-145); TCO2 28 mmol/L (25-35); TOTAL BILIRUBIN 0.32 mg/dL (0.20-1.00)
[2018-07-04] MEDS: HUMALOG SUBQ SCH ×3 (08:47→16:40)
[2018-07-04] MEDS: BASAGLAR SUBQ SCH (08:49)
[2018-07-04] MEDS: SODIUM CHLORIDE 0.9% INJ SCH (08:50)
[2018-07-04] MEDS: LACTULOSE PO SCH ×3 (08:50→22:15)
[2018-07-04] MEDS: PROTONIX IV SCH (08:50)
[2018-07-04] MEDS: REQUIP PO SCH ×4 (08:50→22:16)
[2018-07-04] MEDS: DULCOLAX PR SCH (08:50)
[2018-07-04] MEDS: BUSPAR PO SCH ×2 (08:51→22:16)
[2018-07-04] MEDS: ZETIA PO SCH (08:51)
[2018-07-04] MEDS: MYSOLINE PO SCH ×2 (08:51→22:16)
[2018-07-04] MEDS: KEPPRA PO SCH ×2 (08:51→22:15)
[2018-07-04] MEDS: SOLU-MEDROL IV SCH ×2 (08:51→22:16)
[2018-07-04] MEDS: SINGULAIR PO SCH (08:52)
[2018-07-04] MEDS: ASPIRIN PO SCH (08:52)
[2018-07-04] MEDS: LIPITOR PO SCH (08:52)
[2018-07-04] MEDS: LOPRESSOR PO SCH ×2 (08:52→22:16)
[2018-07-04] MEDS: COZAAR PO SCH (08:53)
[2018-07-04] MEDS: ABILIFY PO SCH (08:53)
[2018-07-04] MEDS: LEVAQUIN 500 MG/D5W 500 MG/100 ML IVPB IV SCH (12:44)
--- NOTE | 2018-07-04 13:54 | PROGRESS NOTE ---
DATE: 07/04/2018 SUBJECTIVE: The patient is completely alert and oriented x3, the plan is to send this patient to physical therapy, I have stopped his statin because of the elevation of the LFTs and I will continue to monitor. OBJECTIVE: Vital Signs: Temperature 98.1 degrees, pulse 70, respiratory rate 16, blood pressure 151/66, oxygen saturation 95 on room air. HEENT: Head normocephalic. No trauma. PERRLA. Neck: Supple. No JVD. No masses. Central trachea. Chest: Decreased breath sounds at the bases with some crepitus as well. Abdomen: Soft, protuberant, nontender, nondistended. No hepatosplenomegaly. Extremity: 2 to 3+ lower extremity edema. No clubbing, no cyanosis. Neurologic: The patient is alert and oriented x3. No focal deficits. LABORATORY: WBC 8.4, hemoglobin 12, hematocrit 38.5, platelet 381,000, sodium 138, potassium 3.5, chloride 99, bicarbonate 28, BUN 15, creatinine 0.8, glucose 134, calcium 9.2, AST 197, ALT 192, alkaline phosphatase 103. ASSESSMENT AND PLAN: 1. Altered mental status associated with agitation, no focal neurological deficit, this global encephalopathy is resolved probably related to narcotic withdrawal. 2. History of seizure disorder. Continue with Keppra. 3. Uncontrolled type 2 diabetes. Hemoglobin A1c 13.3. Blood sugar better controlled. 4. Hypertension. Continue with same management. 5. Transaminitis possible secondary to medication and/or alcohol use. 6. Atypical chest pain. A stress test has been done upon admission, cardiac velarde he seems to be stable. Echocardiogram showed an ejection fraction of 65%. 7. History of chronic obstructive pulmonary disease/sleep apnea aware. 8. History of coronary artery disease, no chest pain at this moment. 9. History of hypoxemic and hypercapnic respiratory failure status post extubation 4 days ago aware. He is doing much better. 10. Nutritional status. This patient is tolerating p.o. Continue with same management. 11. Overall this patient is doing better. He is weak, physical therapy on board. The plan is to send this patient to a rehab center. cc: Bienvenido Montemayor MD
[2018-07-04] MEDS: DUONEB (A & A) INH PRN (15:12)
[2018-07-04] MEDS ORDERED: LASIX IV ONE (17:37)
[2018-07-04] MEDS: VANCOMYCIN 2 GM in NS 500 ML IV SCH (17:57)
--- NOTE | 2018-07-04 21:14 | PULMONOLOGY PROGRESS NOTE ---
DATE: 07/04/2018 SUBJECTIVE: The patient is awake, alert. He is sitting in a chair. He is without specific complaints. OBJECTIVE: Vital Signs: BP 138/79, heart rate 89, respiratory rate 16, oxygen saturation 100% on 3 L per nasal cannula. HEENT: Pupils are equal and reactive. Oropharynx is clear. Neck: Is supple. Chest: Reveals crackles in the lung bases. Cardiac: S1, S2. Abdomen: Obese and soft. Extremities: Are without edema. LABORATORIES: White blood count 8.4, hemoglobin 12.0, platelet count 381,000, sodium 138, potassium 3.5, chloride 99, bicarbonate 28, BUN 15, creatinine 0.8. IMPRESSION: 1. 53-year-old with acute hypoxemic respiratory failure. 2. Delirium. 3. Uncontrolled diabetes mellitus. 4. Morbid obesity. RECOMMENDATIONS: 1. Continue to wean oxygen as tolerated. 2. Encourage exercise and weight loss. 3. Encourage diabetic/sugar control. 4. Anticipate rehab at the beginning of the week. cc: Sriram Hebert MD
[2018-07-04] MEDS: NON-FORMULARY MED (Brexpiprazole [Rexulti] 0 MG) PO SCH (22:40)
[2018-07-05] MEDS: ROBITUSSIN PO SCH ×4 (03:21→22:00)
[2018-07-05] MEDS: VANCOMYCIN 2 GM in NS 500 ML IV SCH ×2 (04:22→17:25)
[2018-07-05] MEDS: HUMULIN R SUBQ SCH ×4 (06:02→21:52)
[2018-07-05 08:16] LABS: AGAP 12; ALB/GLOB RATIO 1.1; ALBUMIN 3.6 g/dL (3.5-5.0); ALKALINE PHOSPHATASE 104 U/L (32-122); BUN 15 mg/dL (8-22); CHLORIDE 98 mmol/L (98-107); COSMO 278; CREATININE 0.7 mg/dL (0.7-1.2); ESTIMATED GFR > 60; GLUCOSE 134 mg/dL (70-104); GOT 173 U/L (10-34); GPT 207 U/L (10-44); POTASSIUM 3.5 mmol/L (3.5-5.1); SODIUM 138 mmol/L (136-145); TCO2 28 mmol/L (25-35); TOTAL BILIRUBIN 0.36 mg/dL (0.20-1.00); TOTAL PROTEIN 6.8 g/dL (6.3-8.3)
[2018-07-05] MEDS: DUONEB (A & A) INH PRN ×2 (08:44→22:06)
[2018-07-05] MEDS: ZETIA PO SCH (09:10)
[2018-07-05] MEDS: BUSPAR PO SCH ×2 (09:10→21:53)
[2018-07-05] MEDS: LOPRESSOR PO SCH ×2 (09:10→21:54)
[2018-07-05] MEDS: MYSOLINE PO SCH ×2 (09:10→21:54)
[2018-07-05] MEDS: HUMALOG SUBQ SCH ×3 (09:11→17:34)
[2018-07-05] MEDS: KEPPRA PO SCH ×2 (09:11→21:54)
[2018-07-05] MEDS: COZAAR PO SCH (09:11)
[2018-07-05] MEDS: REQUIP PO SCH ×4 (09:11→21:53)
[2018-07-05] MEDS: SINGULAIR PO SCH (09:11)
[2018-07-05] MEDS: ASPIRIN PO SCH (09:11)
[2018-07-05] MEDS: PROTONIX IV SCH (09:11)
[2018-07-05] MEDS: BASAGLAR SUBQ SCH (09:12)
[2018-07-05] MEDS: ABILIFY PO SCH (09:12)
[2018-07-05] MEDS: LACTULOSE PO SCH ×2 (09:13→21:54)
[2018-07-05] MEDS: LEVAQUIN 500 MG/D5W 500 MG/100 ML IVPB IV SCH (09:13)
[2018-07-05] MEDS: SOLU-MEDROL IV SCH ×2 (09:13→21:53)
[2018-07-05] MEDS: DULCOLAX PR SCH (09:13)
[2018-07-05] MEDS ORDERED: LASIX IV ONE (10:04)
--- NOTE | 2018-07-05 14:45 | PROGRESS NOTE ---
DATE: 07/05/2018 SUBJECTIVE: No acute events overnight. She still has some elevation of the LFTs, AST decreased a little bit compared with yesterday. LFT increased a little bit compared with yesterday from 182 to 207, statins has been stopped for now. OBJECTIVE: Vital Signs: Temperature 98.1 degrees, pulse 61, respiratory rate 20, blood pressure 125/63, oxygen saturation 96 on room air. HEENT: Head normocephalic. No trauma. PERRLA. Neck: Supple. No JVD. No masses. Central trachea. Chest: Decreased breath sounds at the bases with some crepitus as well. Abdomen: Soft, protuberant, nontender, nondistended. No hepatosplenomegaly. Extremities: There is 2+ to 3+ lower extremity edema. No clubbing. No cyanosis. Neurological examination: Alert and oriented x3. No focal neurological deficits. LABORATORY: Sodium 138, potassium 3.5, chloride 98, bicarbonate 28. BUN 15, creatinine 0.7, glucose 134, calcium 9. AST 173, ALT 207, alkaline phosphatase 104. ASSESSMENT AND PLAN: 1. Altered mental status associated with agitation, no focal neurological deficit. Basically his global encephalopathy has resolved probably related to narcotic withdrawal. 2. History of seizure disorder. Continue with Keppra. 3. Uncontrolled type 2 diabetes. His hemoglobin A1c is 13.3. Blood sugar better controlled. 4. Hypertension. Continue with same management. 5. Transaminitis possibly secondary to medication and/or alcohol abuse. 6. Atypical chest pain. A stress test was done upon admission and did not show any acute issues. Echocardiogram showed an ejection fraction of 65%. 7. History of chronic obstructive pulmonary disease, sleep apnea, aware. Not in exacerbation at this moment. 8. History of coronary artery disease. Initially he was complaining of chest pain, but this has resolved. 9. History of hypoxemic and hypercapnic respiratory failure, status post extubation 4 days ago, aware. He is doing much better. 10. Nutritional status. Continue with the same management. 11. Physical deconditioning. The plan is to send this patient to a rehab center. cc: Bienvenido Montemayor MD
[2018-07-05] MEDS: TYLENOL PO PRN (15:46)
--- NOTE | 2018-07-05 20:21 | PULMONOLOGY PROGRESS NOTE ---
DATE: 07/05/2018 SUBJECTIVE: The patient is awake, alert and without complaints. He reports he is being prepared for discharge to the rehabilitation facility early next week. OBJECTIVE: The patient has been weaned from 3 L to room air. BP 125/63, heart rate 61, respiratory rate 20, patient has been afebrile for the last 24 hours.HEENT: Pupils are equal and reactive. Oropharynx is clear. Neck: Is supple. Chest: Reveals crackles in the bases with prolonged expiratory phase. Abdomen: Obese and soft. Extremities: Reveal 1+ peripheral edema. IMPRESSION: 53-year-old with 1. Acute hypoxemic respiratory failure. 2. Delirium. 3. Diabetes mellitus. 4. Morbid obesity. RECOMMENDATIONS: 1. Continue bronchial hygiene. The patient has been successfully weaned off oxygen. 2. Encourage exercise and weight loss. 3. Encourage diabetic sugar control. 4. Anticipate rehabilitation next week. 5. Patient does not currently have any active pulmonary issues. Please call tomorrow if I can be of assistance. cc: Sriram Hebert MD
[2018-07-05] MEDS: NON-FORMULARY MED (Brexpiprazole [Rexulti] 0 MG) PO SCH (22:32)
[2018-07-06] MEDS: TYLENOL PO PRN (00:49)
[2018-07-06] MEDS: DUONEB (A & A) INH PRN ×3 (00:58→23:30)
[2018-07-06] MEDS: ROBITUSSIN PO SCH ×4 (02:11→22:29)
[2018-07-06] MEDS ORDERED: LASIX IV ONE (03:32)
[2018-07-06] MEDS: VANCOMYCIN 2 GM in NS 500 ML IV SCH ×2 (04:42→18:05)
[2018-07-06] MEDS: HUMULIN R SUBQ SCH ×4 (06:17→22:30)
[2018-07-06 08:09] LABS: AGAP 13; ALB/GLOB RATIO 1.2; ALBUMIN 3.9 g/dL (3.5-5.0); ALKALINE PHOSPHATASE 117 U/L (32-122); BUN 15 mg/dL (8-22); CALCIUM 8.9 mg/dL (8.8-10.2); CHLORIDE 98 mmol/L (98-107); COSMO 281; CREATININE 0.8 mg/dL (0.7-1.2); ESTIMATED GFR > 60; GLUCOSE 147 mg/dL (70-104); GOT 141 U/L (10-34); GPT 206 U/L (10-44); POTASSIUM 3.6 mmol/L (3.5-5.1); SODIUM 139 mmol/L (136-145); TCO2 28 mmol/L (25-35); TOTAL BILIRUBIN 0.32 mg/dL (0.20-1.00); TOTAL PROTEIN 7.2 g/dL (6.3-8.3)
[2018-07-06] MEDS: KEPPRA PO SCH ×2 (09:26→22:28)
[2018-07-06] MEDS: PROTONIX IV SCH (09:26)
[2018-07-06] MEDS: BUSPAR PO SCH ×2 (09:27→22:29)
[2018-07-06] MEDS: MYSOLINE PO SCH ×2 (09:27→22:29)
[2018-07-06] MEDS: LOPRESSOR PO SCH ×2 (09:27→22:28)
[2018-07-06] MEDS: SINGULAIR PO SCH (09:27)
[2018-07-06] MEDS: BASAGLAR SUBQ SCH (09:27)
[2018-07-06] MEDS: COZAAR PO SCH (09:27)
[2018-07-06] MEDS: ABILIFY PO SCH (09:27)
[2018-07-06] MEDS: ASPIRIN PO SCH (09:27)
[2018-07-06] MEDS: REQUIP PO SCH ×4 (09:27→22:28)
[2018-07-06] MEDS: ZETIA PO SCH (09:27)
[2018-07-06] MEDS: HUMALOG SUBQ SCH ×3 (09:28→14:55)
[2018-07-06] MEDS: SOLU-MEDROL IV SCH ×2 (09:29→22:29)
[2018-07-06] MEDS: DULCOLAX PR SCH (09:29)
[2018-07-06] MEDS: LACTULOSE PO SCH ×2 (09:29→22:28)
[2018-07-06] MEDS: LEVAQUIN 500 MG/D5W 500 MG/100 ML IVPB IV SCH (09:30)
[2018-07-06] MEDS: BUMEX PO PRN ×2 (13:09→22:29)
--- NOTE | 2018-07-06 13:10 | PROGRESS NOTE ---
DATE: 07/06/2018 SUBJECTIVE: This patient is doing better, no acute events overnight. OBJECTIVE: Vitals: Temperature 98 degrees, pulse 71, respiratory rate 18, blood pressure 123/79, oxygen saturation 100% on room air. HEENT: Head normocephalic. No trauma. PERRLA. Neck: Supple. No JVD. No masses. Central trachea. Chest: Decreased breath sounds at the bases with some crepitus. Abdomen: Soft, protuberant, nontender, nondistended. No hepatosplenomegaly. Extremities: 2 to 3+ lower extremity edema. No clubbing. No cyanosis. Neurological: The patient is alert and oriented x3. No focal neurological deficits. LABORATORY: Sodium 139, potassium 3.6, chloride 98, bicarbonate 28, BUN 15, creatinine 0.8, glucose 147, calcium 8.9, AST 141, ALT 206, alkaline phosphatase 117. ASSESSMENT AND PLAN: 1. Altered mental status associated with agitation, global encephalopathy. No neurological deficits, resolved probably secondary to narcotic withdrawal. 2. History of seizure disorder. Continue with Keppra. 3. Uncontrolled type 2 diabetes, hemoglobin A1c 13.3. Blood sugar better controlled. 4. Hypertension. Continue with the same management. 5. Transaminitis, probably secondary to medication effect, this has stabilized and going down slowly. 6. Atypical chest pain. A stress test was done upon admission and did not show any acute issues. Echocardiogram showed an ejection fraction of 65%. 7. History of chronic obstructive pulmonary disease, sleep apnea, aware. Not in exacerbation. 8. History of coronary artery disease. He was complaining initially of chest pain, but has resolved already. 9. History of hypoxemic and hypercapnic respiratory failure, status post extubation 5 days ago, aware. He is doing much better. 10. Nutritional status. Continue with same management. 11. Physical deconditioning. Continue with physical therapy. cc: Bienvenido Montemayor MD
[2018-07-07] MEDS: NON-FORMULARY MED (Brexpiprazole [Rexulti] 0 MG) PO SCH ×2 (00:46→21:25)
[2018-07-07] MEDS: ROBITUSSIN PO SCH (03:34)
[2018-07-07] MEDS: TYLENOL PO PRN (06:04)
[2018-07-07] MEDS: HUMULIN R SUBQ SCH ×4 (06:05→21:26)
[2018-07-07] MEDS: VANCOMYCIN 2 GM in NS 500 ML IV SCH ×2 (06:05→17:05)
[2018-07-07] MEDS: DUONEB (A & A) INH PRN ×3 (07:15→15:10)
[2018-07-07 08:17] LABS: AGAP 11; ALB/GLOB RATIO 1.3; ALKALINE PHOSPHATASE 119 U/L (32-122); BUN 18 mg/dL (8-22); CALCIUM 9.4 mg/dL (8.8-10.2); CHLORIDE 97 mmol/L (98-107); COSMO 282; CREATININE 0.8 mg/dL (0.7-1.2); ESTIMATED GFR > 60; GLUCOSE 152 mg/dL (70-104); GOT 105 U/L (10-34); GPT 182 U/L (10-44); POTASSIUM 4.1 mmol/L (3.5-5.1); SODIUM 139 mmol/L (136-145); TCO2 31 mmol/L (25-35)
[2018-07-07] MEDS: HUMALOG SUBQ SCH ×3 (08:42→17:01)
[2018-07-07] MEDS: LACTULOSE PO SCH ×3 (08:47→21:25)
[2018-07-07] MEDS: LEVAQUIN 500 MG/D5W 500 MG/100 ML IVPB IV SCH (08:47)
[2018-07-07] MEDS: BUSPAR PO SCH ×2 (08:48→21:24)
[2018-07-07] MEDS: ABILIFY PO SCH (08:48)
[2018-07-07] MEDS: ZETIA PO SCH (08:48)
[2018-07-07] MEDS: MYSOLINE PO SCH ×2 (08:48→21:24)
[2018-07-07] MEDS: BASAGLAR SUBQ SCH (08:49)
[2018-07-07] MEDS: REQUIP PO SCH ×4 (08:49→21:25)
[2018-07-07] MEDS: LOPRESSOR PO SCH ×2 (08:49→21:24)
[2018-07-07] MEDS: KEPPRA PO SCH ×2 (08:49→21:24)
[2018-07-07] MEDS: SINGULAIR PO SCH (08:49)
[2018-07-07] MEDS: SOLU-MEDROL IV SCH ×2 (08:49→21:22)
[2018-07-07] MEDS: COZAAR PO SCH (08:49)
[2018-07-07] MEDS: SODIUM CHLORIDE 0.9% INJ SCH (08:49)
[2018-07-07] MEDS: ASPIRIN PO SCH (08:49)
[2018-07-07] MEDS: PROTONIX IV SCH (08:49)
[2018-07-07] MEDS: DULCOLAX PR SCH (08:51)
[2018-07-07] MEDS: BUMEX PO PRN ×2 (11:20→17:58)
--- NOTE | 2018-07-07 14:12 | PROGRESS NOTE ---
DATE: 07/07/2018 SUBJECTIVE: The patient is doing better. No acute events overnight. OBJECTIVE: Vital Signs: Temperature 97.4 degrees, pulse 62, respiratory rate 16, blood pressure 151/72, oxygen saturation 100% on room air. HEENT: Head normocephalic. No trauma. HEENT: PERRLA. Neck: Supple. No JVD. No masses. Central trachea. Chest: Decreased breath sounds at the bases with some crepitus. Abdomen: Soft, protuberant, nontender, nondistended. No hepatosplenomegaly. Extremities: There is 2+ to 3+ lower extremity edema. No clubbing. No cyanosis. Neurological: The patient is alert and oriented x3. No focal deficits. LABORATORY DATA: Sodium 139, potassium 4.1, chloride 97, bicarbonate 31, BUN 18, creatinine 0.8, glucose 152, calcium 9.4. AST 105, ALT 182, alkaline phosphatase 118, albumin 4. ASSESSMENT AND PLAN: 1. Altered mental status associated with agitation, global encephalopathy, no neurological deficits, resolved, probably secondary to narcotic withdrawal. 2. History of seizure disorder. Continue with Keppra. 3. Uncontrolled type 2 diabetes. Hemoglobin A1c 13.3. Blood sugar better controlled. 4. Hypertension. Continue with same management. 5. Transaminitis, likely secondary to medication effect. This has stabilized and going down slowly. I have stopped the statins. 6. Atypical chest pain. A stress test was done upon admission and did not show any acute abnormality. Echocardiogram showed an ejection fraction of 65%. 7. History of chronic obstructive pulmonary disease, sleep apnea. Aware, not in exacerbation. 8. History of coronary artery disease. He was complaining initially of chest pain but that has resolved. 9. History of hypoxemic and hypercapnic respiratory failure status post extubation 6 days ago. Aware, he is doing better. 10. Nutritional status. Continue with same management. 11. Physical deconditioning. Continue with physical therapy. Overall, this patient is doing better. Pending rehab center placement. cc: Bienvenido Montemayor MD
[2018-07-08] MEDS: VANCOMYCIN 2 GM in NS 500 ML IV SCH ×2 (04:24→16:29)
[2018-07-08] MEDS: BUMEX PO PRN ×2 (04:24→18:11)
[2018-07-08] MEDS: HUMULIN R SUBQ SCH ×4 (06:38→20:38)
[2018-07-08] MEDS: COZAAR PO SCH (08:05)
[2018-07-08] MEDS: SINGULAIR PO SCH (08:05)
[2018-07-08] MEDS: SOLU-MEDROL IV SCH (08:05)
[2018-07-08] MEDS: ZETIA PO SCH (08:05)
[2018-07-08] MEDS: MYSOLINE PO SCH ×2 (08:06→20:28)
[2018-07-08] MEDS: ASPIRIN PO SCH (08:06)
[2018-07-08] MEDS: KEPPRA PO SCH ×2 (08:06→20:28)
[2018-07-08] MEDS: LOPRESSOR PO SCH ×2 (08:06→20:28)
[2018-07-08] MEDS: ABILIFY PO SCH (08:06)
[2018-07-08] MEDS: PROTONIX IV SCH (08:07)
[2018-07-08] MEDS: BUSPAR PO SCH ×2 (08:07→20:28)
[2018-07-08] MEDS: SODIUM CHLORIDE 0.9% INJ SCH (08:07)
[2018-07-08] MEDS: REQUIP PO SCH ×4 (08:08→20:28)
[2018-07-08] MEDS: HUMALOG SUBQ SCH ×3 (08:14→17:55)
[2018-07-08] MEDS: LEVAQUIN 500 MG/D5W 500 MG/100 ML IVPB IV SCH ×2 (08:21→08:51)
[2018-07-08] MEDS: BASAGLAR SUBQ SCH (08:22)
[2018-07-08] MEDS: DULCOLAX PR SCH (08:35)
[2018-07-08] MEDS: LACTULOSE PO SCH ×2 (08:36→20:28)
[2018-07-08] MEDS: PROTONIX PO SCH (10:48)
--- NOTE | 2018-07-08 16:59 | PROGRESS NOTE ---
DATE: 07/08/2018 PRIMARY CARE DOCTOR: Dr. Escobedo in [place], [place]. CLIENT CARE MANAGER: Dr. Estrella. SUBJECTIVE: Mr. Wynn is a 53-year-old presented with chest pain, past medical history of angioplasty without stent placement a few years ago. The patient reports since that time he has been taking daily aspirin. Approximately 4 weeks ago he was instructed by his surgeon who performed his hernia repair to stop taking his aspirin due to his reported bleeding complications. The patient states that over the last 3 months he has had approximately 5 episodes of chest pain. Reports the chest pain does come on exertion. Once he stops, sits down to rest chest pain does not always subside. States usually it does subside with administration of nitroglycerin. Reported that the day before admission he was walking and began to have chest pain in the center of his chest, nonradiating, felt like someone stabbing in the chest, so he was admitted with chest pain. PAST MEDICAL HISTORY: 1. Coronary artery disease status post angioplasty. 2. Hypertension. 3. Hyperlipidemia. 4. Congestive heart failure. 5. COPD. 6. Diabetes mellitus type 2. 7. Seizure disorder. 8. Essential tremor. 9. Restless legs syndrome. 10. Glaucoma. 11. Major depressive disorder. 12. Alcohol abuse. 13. Gastroesophageal reflux disease. PAST SURGICAL HISTORY: 1. Angioplasty. 2. Hernia repair. 3. Tonsillectomy. 4. Had adenoidectomy. 5. The patient had some type of surgery on his left leg. So admitted with chest pain. Today he feels he feels good. No chest pain. Breathing comfortably and is talking about wanting to go home. OBJECTIVE: Vital Signs: Temperature is 98 degrees, pulse 70, respirations 17, blood pressure 121/69. HEENT: Pupils are equal. Neck: No distended neck veins. Lungs: Clear in all lung alvarado anterior, lateral, posterior. Cardiovascular: Regular rhythm and rate without murmur or S3. Abdomen: Soft. Skin: Warm and dry. LABORATORY STUDIES: Urine output is 2900 mL. Blood sugars last 3 were 245, 205, and 311. ASSESSMENT AND PLAN: 1. Altered mental status associated with agitation and global encephalopathy. No neurologic deficits. This is resolved. Wayne it was secondary to narcotic withdrawal. 2. History of seizure disorder. He is on Keppra. 3. Uncontrolled diabetes mellitus type 2. A1c is 13. Blood sugars have been under better control here at the hospital. 4. Hypertension. Blood pressure is under good control. 5. Transaminitis, likely secondary to medication effect and these seem to be going down. His statins have been stopped. 6. Atypical chest pain. Tested done on admission did not show any acute abnormality. Echocardiogram shows a normal ejection fraction. No sign of cardiac ischemia. 7. History of chronic obstructive pulmonary disease, sleep apnea, aware. 8. History of coronary artery disease. He was complaining of chest pain when he came in and it resolved. Did not appear to be cardiac ischemia. 9. History of hypoxemic hypercapnic respiratory failure status post extubation 7 days ago, which he is doing very well. 10. Nutritional status, eating well. 11. Physical deconditioning. Continue physical therapy. He would like to go home. Dr. Hebert has been following. Feel like he probably can go home today so I will see if I can get him ready for that. cc: Migue Salas MD
[2018-07-08] MEDS: NON-FORMULARY MED (Brexpiprazole [Rexulti] 0 MG) PO SCH ×2 (23:12→23:13)
[2018-07-08] MEDS: TYLENOL PO PRN (23:45)
[2018-07-09] MEDS: VANCOMYCIN 2 GM in NS 500 ML IV SCH (05:08)
[2018-07-09] MEDS: BUMEX PO PRN (05:15)
[2018-07-09] MEDS: HUMULIN R SUBQ SCH ×2 (06:04→11:44)
--- NOTE | 2018-07-09 07:27 | Diag Imaging Result Doc PS360 ---
EXAM: CHEST-1 VIEW HISTORY: SOB TECHNIQUE: Portable chest two views COMPARISON: 07/03/2018 FINDINGS: The lungs are well expanded. No change in the left-sided PICC line. The heart is not enlarged. The vessels are not distended. There are no infiltrates. No effusion identified. IMPRESSION: Negative exam. Electronically signed by Kiko Hewitt 07/09/2018 7:25 AM
[2018-07-09] MEDS: PROTONIX PO SCH (08:53)
[2018-07-09] MEDS: KEPPRA PO SCH (08:53)
[2018-07-09] MEDS: ZETIA PO SCH (08:53)
[2018-07-09] MEDS: MYSOLINE PO SCH (08:53)
[2018-07-09] MEDS: ABILIFY PO SCH (08:53)
[2018-07-09] MEDS: SINGULAIR PO SCH (08:53)
[2018-07-09] MEDS: REQUIP PO SCH ×2 (08:53→12:56)
[2018-07-09] MEDS: LOPRESSOR PO SCH (08:53)
[2018-07-09] MEDS: BUSPAR PO SCH (08:53)
[2018-07-09] MEDS: ASPIRIN PO SCH (08:53)
[2018-07-09] MEDS: BASAGLAR SUBQ SCH (08:55)
[2018-07-09] MEDS: HUMALOG SUBQ SCH ×2 (08:56→13:06)
[2018-07-09] MEDS ORDERED: SOLU-MEDROL IV SCH (09:00)
[2018-07-09] MEDS: LEVAQUIN 500 MG/D5W 500 MG/100 ML IVPB IV SCH (09:03)
[2018-07-09] MEDS: DULCOLAX PR SCH (10:49)
[2018-07-09] MEDS: LACTULOSE PO SCH (10:50)
--- NOTE | 2018-07-09 11:24 | DISCHARGE SUMMARY ---
ADMISSION DATE: 06/20/2018 DISCHARGE DATE: 07/09/2018 ADMISSION DIAGNOSIS: 1. Chest pain. 2. History of coronary artery disease status post angioplasty. 3. Hypertension. 4. Hyperlipidemia. 5. Diabetes mellitus type 2. 6. Seizure disorder. 7. Alcohol abuse. 8. Major depressive disorder. 9. Chronic obstructive pulmonary disease, no exacerbation. DISCHARGE DIAGNOSIS: 1. Altered mental status associated with agitation and global encephalopathy. 2. History of seizure disorder. 3. Uncontrolled diabetes mellitus type 2. 4. Hypertension. 5. Transaminitis, medication-induced. 6. Atypical chest pain. Cardiac ischemia ruled out. 7. History of chronic obstructive pulmonary disease and sleep apnea. 8. History of coronary artery disease. 9. History of hypoxemic hypercapnic respiratory failure, extubation 8 days ago. 10.Physical deconditioning with physical therapy. CONSULTATIONS: 1. John Lui MD for chest pain. 2. Tonny Franco III, MD for altered mental status. 3. Azam Li MD for respiratory failure. 4. PICC line. SURGERIES AND PROCEDURES: PICC line placement I believe on 06/24. Had a myocardial perfusion scan on 06/20 showed adequate response to Lexiscan, negative for chest pain, negative for ischemia. HOSPITAL COURSE: Mr. Rito Wynn is a 53-year-old male, who presented with chest pain on the with admission on the , has a history of coronary artery disease with history of angioplasty, no stent, a few years prior to this admission. He has been taking daily aspirin and was told 4 weeks ago to stop taking the aspirin and was told by his surgeon, who performed the hernia repair, due to some reported bleeding complications, and over the last 3 months prior to admission had episodes of chest pain usually with exertion but when he stops and rests it would go away. He also reported that just prior to the arrival he had a seizure at home and a witnessed seizure by EMS and after arrival to the ER as well. Prior to the day of admission had been a few months since he had had a seizure. He was hyperglycemic with a glucose level 534, hypercapnic with CO2 of 52. Head CT was negative. Cardiac enzymes were negative. EKG without ST changes. The patient was drowsy but easily awoken. Was placed on seizure precautions and resumed on his Keppra 1000 mg p.o. twice a day. It was also reported that he had 8 drinks approximately a pint of liquor a day and was initiated on Librium and Baclofen. For his COPD, he was placed on nebulizers and sent to [facility] on day of admission. Had a perfusion scan on the , which was negative for any ischemia, was seen by Dr. Lui on the same day. His diabetes was found to be uncontrolled as he had a hemoglobin A1c of 13.3. Due to the liver enzymes being elevated, there was a liver ultrasound or abdominal ultrasound performed, which showed hepatomegaly and fatty infiltration of the liver. On 06/21, he was transferred to the ICU, as he was having some twitching but no full seizure activity and then by day 7 started having extreme agitation and signs of alcohol withdrawal with delirium, was started on an Ativan drip, IV fluids for hydration, and Haldol was used intermittently for further agitation and had a seizure that day. He was initiated on Dilantin as well with the Keppra. Dr. Franco saw him on the , no new suggestions. CT scan was repeated, it was negative. Started on Clinimix for nutritional support, long-acting Valium added, continued with the Ativan, antiepileptic drug. Had to have an NG tube placed and then had to be intubated on the due to respiratory failure and severe agitation. Dr. Li saw him on the same day of intubation for ventilator management. Was started on propofol for sedation, bronchodilators were continued, was on broad-spectrum antibiotic. On the 2 days after intubation developed right middle lobe atelectasis versus pneumonia and then it turned into bibasilar pneumonia. EEG had to keep being postponed due to the sedation. By the , basilar atelectasis or pneumonia was improving and that is the day they started trying to wean him off the ventilator. We repeated a head CT, which showed sinusitis, no other acute finding. PICC line was also placed on the and then on the Dr. Li mentioned that airway protection and neuro status was his limitation to progressing in ventilator weaning. Progress will depend on either regaining alertness on sedation vacation. Daily there were attempts to wean the sedation to be able to get off the ventilator. PICC line repositioned on the as well and was in good position, the first was in not good position. He was extubated on the , still pretty drowsy on the and disoriented but by the he was much more alert and oriented x3. White catheter was removed. Physical therapy and occupational was consulted for evaluation. He was initiated on steroids for his COPD. So, in a sense, the global encephalopathy was finally starting to resolve and the DTs were resolved as well. Chest x-ray on the was stable. Statin was stopped during his stay due to his elevated LFTs from the hepatic steatosis. He continued to be weak, still needed physical therapy a great deal and so a search for a rehab center was in way. Diet advanced. Eventually transferred to the floor, continued with physical therapy and oxygen wean. Still has a left PICC line. Chest x-ray today shows negative for any acute findings, and has been found a rehabilitation center at [facility], will be transferred there. DISCHARGE VITAL SIGNS: Temperature 97.6, heart rate 64, respiratory rate 16, blood pressure 127/64, O2 saturation 99% on room air. DISCHARGE LAB DATA: No recent labs. Kidney function remains stable. Last CBC on the , white blood cell count 8000, hemoglobin 12, hematocrit 38, platelet count 381, and then the last BMP was on the , which shows sodium 139, potassium 4.1, BUN 18, creatinine 0.8, glucose today was 131, calcium 9.4, bilirubin 0.30, AST 105, ALT 182, and albumin 4.0. PERTINENT IMAGING: On 06/19/2018, chest x-ray negative. On 06/20/2018, head CT: No acute disease. On 06/20/2018, myocardial perfusion scan negative for chest pain or ischemia. On 06/21/2018, abdominal ultrasound: Hepatomegaly with fatty infiltration of the liver with mild left hydronephrosis. On 06/28/2018, had a head CT also negative for acute findings. Last chest x-ray today 07/09/2018, it was negative exam, left PICC line in place. On 06/20/2018, echocardiogram: Normal ejection fraction with 65%, mitral and tricuspid valve without any issues. There is trace MR and trace TR, otherwise negative for an abnormal findings. EKG on admit: Sinus tachycardia, rate 107, QTc 443. DISCHARGE MEDICATIONS: 1. Will need to be fully evaluated by Dr. Salas but what is listed here is Tricor 145 mg p.o. nightly, that might be stopped possibly due to the elevated liver enzymes. 2. Aripiprazole 10 mg p.o. daily. 3. Bumetanide 1 mg p.o. twice daily p.r.n. 4. Buspirone HCL 30 mg p.o. twice daily. 5. Catapres 0.1 mg p.o. as needed. 6. Cozaar 50 mg p.o. daily. 7. Cymbalta 90 mg p.o. daily. 8. Trazodone 150 mg p.o. nightly as needed. 9. Flexeril 10 mg p.o. nightly. 10.Janumet 50-1000 mg p.o. twice daily. 11.Lipitor 10 mg p.o. daily. This may be stopped due to the elevated liver enzymes. 12.Lopressor 50 mg p.o. twice daily. 13.Mysoline 150 mg p.o. twice daily. 14.NovoLog insulin. 15.Omeprazole 20 mg p.o. daily. 16.Requip 1 mg p.o. 4 times daily. 17.Rexulti 2 mg p.o. nightly. 18.Singulair 10 mg p.o. daily. 19.Tresiba 80 units subcutaneously nightly. This may be changed as well due to the uncontrolled diabetes. 20.Will likely resume aspirin 81 mg p.o. daily. 21.Insulin glargine 15 units subcutaneously daily, that is new. 22.Humalog 5 units subcutaneously t.i.d. with meals, that is new. 23.Lactulose 30 mL twice a day. 24.Keppra 1000 mg p.o. twice daily, that is also new. 25.Has been on Levaquin IV, will likely be switched to p.o. 26.Has been on Solu-Medrol, will probably be switched over to a Medrol Dosepak. 27.Has been on vancomycin. 28.Phenobarbital p.r.n. I doubt that will be continued. MICRO CULTURES: Blood cultures on the and were negative. Urine culture on the 7th negative. Sputum culture on the 9 negative. Another urine culture on the 9 negative, but then there is a penile swab on the 9th which showed Enterococcus faecalis sensitive to vancomycin, penicillin, ampicillin. So he will probably continue on vancomycin possibly on discharge. DISCHARGE FOLLOWUP: Dr. Lui, Dr. Franco, Dr. Li. DISCHARGE INSTRUCTIONS: For any signs or symptoms of infection, severe pain, to seek medical advice, any signs of seizures, etc. Continue all medications as prescribed on discharge unless otherwise changed by the rehab facility physician. Will need to have a repeat liver enzymes tested in the near future. DISCHARGE DIET: Diabetic diet with Glucerna shakes. DISCHARGE ACTIVITY: As tolerated with physical therapy as well. DISCHARGE DISPOSITION: [facility]. Dictated by JENNYFER Blair for Migue Salas MD cc: JENNYFER Blair MD [facility]
[2018-07-09 11:52] VITALS: BP 128/74
== END 2018-07-09 14:35 | DRG 896 ==
LOC: SUPCPDRO → ED 22:11 → EDIPHOLD 06-20 05:10 → SUATTDRO 06-20 05:10 → ICU 06-20 16:26 → 3N 07-03 01:24
PROVIDERS: ATTEND Emergency Medicine
CPT/HCPCS: 31500; 36569; 70450; 71010; 71045; 76700; 78452; 80048; 80053; 80069; 80074; 80101; 80177; 80184; 80185; 80202; 80299; 80301; 80307; 80320; 80324; 80345; 80346; 80353; 80358; 80361; 80365; 81001; 82009; 82055; 82491; 82550; 82553; 82805; 82948; 83036; 83735; 83880; 83992; 84100; 84484; 85025; 85610; 85730; 87040; 87070; 87077; 87088; 87186; 87205; 93005; 93017; 93306; 94002; 94003; 94640; 94660; 94760; 94761; 94799; 95816; 96361; 96374; 97110; 97116; 97162; 97166; 97530; 97535; 99285; A9270; A9500; C8929; C9113; G0431; G0434; G0479; G0480; G6040; J0330; J0360; J0610; J1165; J1630; J1815; J1940; J1953; J1956; J2060; J2270; J2405; J2560; J2785; J2920; J2930; J3360; J3370; J3411; J3475; J3480; J3486; J7030; J7040; J7050; Q2009; Q9957; S0164; XXXXX